=== PATIENT | female | born 1990 | race Caucasian/White ===

== ENCOUNTER 2020-02-02 12:49 | Outpatient (REF) | payer OTHER, SELFPAY | END 2020-02-02 12:50 | disposition home or self-care (01) | LOC: HO.LAB 12:49 | PROVIDERS: PCP Internal Medicine; Visit Provider Internal Medicine | DX: Z20.828 Contact with and (suspected) exposure to other viral communicable diseases (principal) | CPT/HCPCS: 36415; 87635 ==

== ENCOUNTER 2020-04-09 10:21 | Outpatient (REF) | payer OTHER, SELFPAY | END 2020-04-09 10:22 | disposition home or self-care (01) | LOC: HO.LAB 10:21 | PROVIDERS: Visit Provider Internal Medicine | DX: Z20.828 Contact with and (suspected) exposure to other viral communicable diseases (principal) | CPT/HCPCS: C9803; U0003 ==

== ENCOUNTER 2020-07-09 08:46 | Outpatient (REF) | payer OTHER, SELFPAY | END 2020-07-09 08:47 | disposition home or self-care (01) | LOC: HO.LAB 08:46 | PROVIDERS: Visit Provider Internal Medicine | DX: Z20.822 Contact with and (suspected) exposure to COVID-19 (principal) | CPT/HCPCS: 36415; C9803; U0003; U0005 ==

== ENCOUNTER 2020-08-15 13:14 | Outpatient (REF) | payer OTHER, SELFPAY | END 2020-08-15 13:15 | disposition home or self-care (01) | LOC: HO.LAB 13:14 | PROVIDERS: Visit Provider Internal Medicine | DX: Z20.822 Contact with and (suspected) exposure to COVID-19 (principal) | CPT/HCPCS: C9803; U0003; U0005 ==

== ENCOUNTER 2020-09-01 19:40 | Emergency (ER) | payer OTHER, SELFPAY ==
--- NOTE | ~2020-09-01 | US_ITS ---
EXAMINATION: US VENOUS ULTRASOUND WITH DOPPLER LOWER EXTREMITY, LEFT CLINICAL INFORMATION: Left leg edema and pain COMPARISON: None TECHNIQUE: Ultrasound of the deep veins is performed from the hip to the calf with compression sonography and color and pulse Doppler assessment. Spectral analysis with color-flow imaging is performed. FINDINGS: There is normal venous compression and respiratory variation and augmented flow. The visualized common femoral vein, superficial femoral vein, profunda femoral vein, popliteal vein, and the trifurcation region shows no evidence of deep venous thrombosis. There is no significant popliteal fossa cyst. If the patient's symptoms persist, followup ultrasound in 5 days 7 days might be of value to exclude proximal propagation from a non-visualized calf vein. US/US venous duplex LE LT IMPRESSION: No DVT demonstrated in the left lower extremity.
--- NOTE | ~2020-09-01 | XR_ITS ---
EXAMINATION: XR CHEST CLINICAL INFORMATION: Chest tightness COMPARISON: Chest x-rays of 06/17/2015 TECHNIQUE: Frontal view of the chest was obtained. FINDINGS: Cardiomediastinal silhouette is stable and normal. No abnormal tracheal deviation. No evidence of pneumothorax. The lungs are symmetrically well expanded and clear. No pleural effusions, pulmonary edema or focal consolidation. The regional skeleton is intact. XR/XR chest 1V IMPRESSION: No acute pulmonary process.
[2020-09-01 19:45] VITALS: BP 132/65; PULSE 84; RESP 18; TEMP 36.3; O2SAT 98; BMI 25.7
[2020-09-01 19:53] VITALS: BMI 24.8
--- NOTE | 2020-09-01 20:52 | ECG_ITS ---
Test Reason : DVT Blood Pressure : / mmHG Vent. Rate : 069 BPM Atrial Rate : 069 BPM P-R Int : 156 ms QRS Dur : 072 ms QT Int : 380 ms P-R-T Axes : 055 059 059 degrees QTc Int : 407 ms Normal sinus rhythm with sinus arrhythmia Normal ECG When compared with ECG of 06-FEB-2016 15:48, No significant change was found Referred By: Ale Woods Electronically Signed By:JEANNINE MARRUFO MD
--- NOTE | 2020-09-01 21:03 | ED_ITS ---
HPI - Extremity Problem General Chief complaint: Extremity Problem Stated complaint: foot swelling Time Seen by Provider: 09/01/20 20:37 Source: patient Mode of arrival: ambulatory Limitations: no limitations History of Present Illness MD Complaint: extremity pain and extremity swelling Onset (ago): day(s) (2) Pain Consistency: constant Location: left and lower extremity Quality: aching Radiation: none Relieving factors: nothing Exacerbating factors: walking and exertion Associated symptoms: chest pain Context: recent travel (returned from [place] 2 days ago did have mosquito bites but no redness or rash noted) Related Data Previous Rx's Medication Instructions Recorded cephalexin 500 mg PO BID 7 Days #14 cap 09/01/20 prednisone 40 mg PO DAILY 5 Days #10 tab 09/01/20 Allergies Allergy/AdvReac Type Severity Reaction Status Date / Time No Known Allergies Allergy Verified 09/01/20 19:51 Review of Systems Review of Systems: Constitutional : No Fever, No Chills ENT/Mouth : No Ear Pain, No Hoarseness, No sore throat Eyes: No Eye Pain, No Swelling, No Redness, No Foreign Body Cardiovascular :pos Chest Pain, No SOB, pos leg edema Respiratory : No Cough, No Dyspnea Gastrointestinal : No Nausea, No Vomiting, No Diarrhea, No abdominal Pain Genitourinary : No Dysuria, No Hematuria Musculoskeletal : positive leg pain, No Myalgias, No Joint Swelling Skin : No Skin lacerations, No rash Neuro : No Weakness, No Numbness, No Loss of Consciousness, No Dizziness, No Headache Psych : No Anxiety/Panic, No Depression Heme/Lymph: no easy bruising, no Lymphadenopathy Endocrine : No Polyuria, No Polydipsia All other systems reviewed and are negative PENDING SALE TO [facility] Past Medical History Attestation statement: The following information was validated with the patient. Medical History Anemia High cholesterol Low iron Vitamin D deficiency Social History Social History (Updated 09/01/20 @ 21:13 by Ale Woods DO) Smoking Status: Never smoker Use of substances other than those prescribed or required for medical reasons: No Advance Directives: No Advance Directives Information Provided: Yes Physical Exam Vital Signs: Vital Signs: Last Vital Signs Temp 96.9 F 09/01/20 23:34 Pulse 60 09/01/20 23:34 Resp 16 09/01/20 23:34 BP 115/79 09/01/20 23:34 Pulse Ox 97 09/01/20 23:34 Body Mass Index 24.8 Appearance: Alert. Oriented X3. No acute distress. Eyes: Pupils equal, round and reactive to light. ENT: Pharynx normal. Neck: Normal inspection. Neck supple. CVS: Normal heart rate and rhythm. Pulses normal. Respiratory: No respiratory distress. Breath sounds normal. Abdomen: Soft and nontender. Skin: Skin warm and dry. Normal skin color. Normal skin turgor. Extremities: LLE swelling 1+ pitting edema, no erythema/warmth no signs of abscess 2+ DP pulse. No calf ttp Neuro: Oriented X 3. No motor deficit. No sensory deficit. Course Course Course Narrative: negative workup stable for DC, will start on steroids and antibiotics for possible reaction to mosquito bites and start of cellulitis MDM - Extremity (Nontraumatic) MDM Narrative Medical decision making narrative: 30 yo female not on OCPs here with LLE pain and swelling x 2 days it does not appear cellulitic in nature c/o mild chest pain at this time will need labs, DVT study, seems atypical for ACS< ddimer and EKG ordered, dispo per results and findings. Lab Data Result diagrams: 09/01/20 21:35 09/01/20 21:35 Labs: Lab Results 09/01/20 09/01/20 09/01/20 Range/Units 21:35 21:35 21:35 WBC 11.2 H (4.8-10.8) X10*3/uL RBC 4.83 (4.20-5.50) X10*6/uL Hgb 14.5 (12.0-16.0) g/dl Hct 42.8 (37-47) % MCV 88.6 (80-98) fL MCH 30.0 (27.0-33.0) pg MCHC 33.9 (31.0-35.0) g/dl RDW 12.2 (11.0-16.0) % Plt Count 266 (160-400) X10*3/uL MPV 11.0 (9.4-12.3) fL Immature Gran % (Auto) 0.4 (0.0-0.4) % Neut % (Auto) 66.9 (45-73) % Lymph % (Auto) 18.9 L (20-40) % [place] % (Auto) 9.7 (2-11) % Eos % (Auto) 3.8 (0-4) % Baso % (Auto) 0.3 (0-2) % Lymph # (Auto) 2.1 (1.2-4.9) X10*3/uL [place] # (Auto) 1.1 (0.1-1.2) X10*3/uL Eos # (Auto) 0.4 (0.0-0.4) X10*3/uL Baso # (Auto) 0.0 (0.0-0.2) X10*3/uL Abs Immat Gran (auto) 0.04 H (0.00-0.03) X10*3/uL Absolute Neuts (auto) 7.5 (2.0-8.3) X10*3/uL Absolute Nucleated RBC 0.000 (0.0-0.012) X10*3/uL Nucleated RBC % (auto) 0.0 (0.0-0.2) /100WBC PT 13.0 (10.8-13.0) SEC INR 1.1 (0.9-1.1) APTT 35.5 (24.1-38.0) SEC D-Dimer < 200 NG/ML Sodium 140 (135-145) mmol/L Potassium 3.8 (3.3-5.1) mmol/L Chloride 107 (96-108) mmol/L Carbon Dioxide 22 (22-29) mmol/L Anion Gap 15 (12-20) BUN 10 (9-16) mg/dL Creatinine 0.72 (0.5-1.4) mg/dL Estim Creat Clear Calc 102.5 Estimated GFR > 60 Random Glucose 81 (60-115) mg/dL Calcium 9.3 (8.4-10.2) mg/dL Troponin I High Sens (<3.5-17.0) ng/L COVID-19 (MATILDA) (Negative) COVID-19 Clin Com 09/01/20 09/01/20 Range/Units 21:35 21:44 WBC (4.8-10.8) X10*3/uL RBC (4.20-5.50) X10*6/uL Hgb (12.0-16.0) g/dl Hct (37-47) % MCV (80-98) fL MCH (27.0-33.0) pg MCHC (31.0-35.0) g/dl RDW (11.0-16.0) % Plt Count (160-400) X10*3/uL MPV (9.4-12.3) fL Immature Gran % (Auto) (0.0-0.4) % Neut % (Auto) (45-73) % Lymph % (Auto) (20-40) % [place] % (Auto) (2-11) % Eos % (Auto) (0-4) % Baso % (Auto) (0-2) % Lymph # (Auto) (1.2-4.9) X10*3/uL [place] # (Auto) (0.1-1.2) X10*3/uL Eos # (Auto) (0.0-0.4) X10*3/uL Baso # (Auto) (0.0-0.2) X10*3/uL Abs Immat Gran (auto) (0.00-0.03) X10*3/uL Absolute Neuts (auto) (2.0-8.3) X10*3/uL Absolute Nucleated RBC (0.0-0.012) X10*3/uL Nucleated RBC % (auto) (0.0-0.2) /100WBC PT (10.8-13.0) SEC INR (0.9-1.1) APTT (24.1-38.0) SEC D-Dimer NG/ML Sodium (135-145) mmol/L Potassium (3.3-5.1) mmol/L Chloride (96-108) mmol/L Carbon Dioxide (22-29) mmol/L Anion Gap (12-20) BUN (9-16) mg/dL Creatinine (0.5-1.4) mg/dL Estim Creat Clear Calc Estimated GFR Random Glucose (60-115) mg/dL Calcium (8.4-10.2) mg/dL Troponin I High Sens < 3.5 (<3.5-17.0) ng/L COVID-19 (MATILDA) Negative (Negative) COVID-19 Clin Com See Note ECG Data Attestation EKG: I personally reviewed and interpreted this ECG as follows: ECG interpretation date: 09/01/20 ECG interpretation time: 21:16 Interpretation: Rate: 69 Rhythm: NSR [place]: normal Normal P waves. Normal URI. incomplete RBBB ST T wave : normal no JULIENNE qTC: normal prior studies: no acute ischemia The study has been interpreted contemporaneously by me. . Discharge Plan Discharge Clinical Impression: Lower extremity edema, Atypical chest pain Mosquito bite Qualifiers: Encounter type: initial encounter Qualified Code(s): W57.XXXA - Bitten or stung by nonvenomous insect and other nonvenomous arthropods, initial encounter Patient Disposition: Home, Self-Care Instructions: Chest Pain (ED), Leg Edema (ED) Additional Instructions: return to ED for any worsening symptoms or concerns Prescriptions: New prednisone 20 mg tablet 40 mg PO DAILY 5 Days Qty: 10 RF: 0 cephalexin 500 mg capsule 500 mg PO BID 7 Days Qty: 14 RF: 0 Referrals: Tammi Knapp MD [Primary Care Provider] - 2 days (if not better) Stand Alone Forms: Work/School Release
[2020-09-01 21:40] LABS: MANUAL DIFF FLAG NO
[2020-09-01 21:43] LABS: Basophils Percent Auto 0.3 % (0-2); Eosinophils Absolute Auto 0.4 X10*3/uL (0.0-0.4); Eosinophils Percent Auto 3.8 % (0-4); Hematocrit 42.8 % (37-47); Hemoglobin 14.5 g/dl (12.0-16.0); Imm Gran Abs Auto 0.04 X10*3/uL (0.00-0.03); Imm Gran Pct Auto 0.4 % (0.0-0.4); Lymphocytes Absolute Auto 2.1 X10*3/uL (1.2-4.9); Lymphocytes Percent Auto 18.9 % (20-40); Mean Corpuscular HGB Conc 33.9 g/dl (31.0-35.0); Mean Corpuscular Volume 88.6 fL (80-98); Monocytes Absolute Auto 1.1 X10*3/uL (0.1-1.2); Monocytes Percent Auto 9.7 % (2-11); Neutrophils Absolute Auto 7.5 X10*3/uL (2.0-8.3); Neutrophils Percent Auto 66.9 % (45-73); Platelet Count 266 X10*3/uL (160-400); Red Blood Count 4.83 X10*6/uL (4.20-5.50); Red Cell Distribution Width 12.2 % (11.0-16.0); White Blood Count 11.2 X10*3/uL (4.8-10.8)
[2020-09-01 21:49] LABS: INTERNATIONAL NORM RATIO 1.1 (0.9-1.1)
[2020-09-01 21:52] LABS: Partial Thromboplastin Time 35.5 SEC (24.1-38.0)
[2020-09-01 21:56] LABS: D Dimer < 200 NG/ML
[2020-09-01 22:04] LABS: Anion Gap 15 (12-20); Blood Urea Nitrogen 10 mg/dL (9-16); Calcium 9.3 mg/dL (8.4-10.2); Carbon Dioxide 22 mmol/L (22-29); Chloride 107 mmol/L (96-108); Creatinine Clr Calc Pharmacy 102.5; Estimated Glomerular Filt Rate > 60; Glucose Random 81 mg/dL (60-115); Potassium 3.8 mmol/L (3.3-5.1); Sodium 140 mmol/L (135-145)
[2020-09-01 22:12] LABS: Troponin-I High Sensitivity < 3.5 ng/L (<3.5-17.0)
[2020-09-01 22:15] LABS: COVID-19 Test Negative (Negative)
[2020-09-01 23:34] VITALS: BP 115/79; PULSE 60; RESP 16; TEMP 36.1; O2SAT 97
[2020-09-01] MEDS: cephALEXin 500 MG CAPSULE PO (23:53)
[2020-09-01] MEDS: predniSONE 20 MG TABLET PO (23:53)
== END 2020-09-01 23:50 | disposition home or self-care (01) ==
PROVIDERS: Emergency Provider Emergency Medicine; PCP Internal Medicine
DX: R60.0 Localized edema (principal); R07.89 Other chest pain; Z79.899 Other long term (current) drug therapy; Z20.822 Contact with and (suspected) exposure to COVID-19
CPT/HCPCS: 36415; 71045; 80048; 84484; 85025; 85379; 85610; 85730; 87635; 93005; 93971; 99284

== ENCOUNTER 2021-01-09 10:27 | Emergency (ER) | payer OTHER, SELFPAY ==
--- NOTE | ~2021-01-09 | CT_ITS ---
EXAMINATION: CT HEAD WITHOUT CONTRAST CLINICAL INFORMATION: Headache COMPARISON: None TECHNIQUE: Contiguous axial imaging was performed from the skull base to vertex without intravenous administration of contrast. This CT examination was performed using dose optimization techniques as appropriate, variously including the following: *Automated exposure control *Adjustment of mA and/or kV according to patient size (this includes techniques or standardized protocols for targeted exams where dose is matched to indication/reason for exam; i.e. extremities or head) *Use of iterative reconstruction technique DLP: 6-0 mGy-cm FINDINGS: There is no evidence of acute intracranial hemorrhage or territorial infarction. No abnormal mass effect or midline shift is seen. Max to white matter differentiation is well preserved. No extra-axial fluid collections are identified. The ventricles are normal in size. There is no abnormal attenuation within the brain parenchyma. The osseous structures and soft tissues are normal. The mastoid air cells and visualized portions of the paranasal sinuses are well aerated. CT/CT head/brain wo con IMPRESSION: No acute intracranial pathology.
[2021-01-09 10:30] VITALS: BP 121/70; PULSE 74; RESP 18; TEMP 36.9; O2SAT 100; BMI 25.4
--- NOTE | 2021-01-09 11:07 | ED.HA ---
HPI - Headache General Chief Complaint: Headache Stated Complaint: headache, lt arm tingling Time Seen by Provider: 01/09/21 10:54 Source: patient Mode of arrival: ambulatory Limitations: no limitations History of Present Illness HPI Narrative: 30-year-old female who presents emergency department for evaluation of headache x2 days. She states that the headache came on suddenly 2 days prior and was moderate but then became worse. She states that the headache has been constant for 2 days. She describes as a throbbing sensation and points to both sides for head when asked to localize the pain. She states the pain is slightly worse on the right side of her head than the left. The headache is associated with intermittent blurred vision and intermittent numbness of her left arm. She denied night sweats, weight loss or weight gain. denied fever, chills, stiff neck, loss of bowel or bladder control. The patient states that she has also been getting intermittent chest tightness over the past month. She states she is currently having pain in her chest which is 7/10. The patient states she took Tylenol with some relief of her pain. Patient states that these headaches have been on and off for the past 4 months and she states that they started after she received her COVID-19 Pfizer vaccination. Related Data Previous Rx's Medication Instructions Recorded cephalexin 500 mg capsule 500 mg PO BID 7 Days #14 cap 09/01/20 prednisone 20 mg tablet 40 mg PO DAILY 5 Days #10 tab 09/01/20 metoclopramide HCl 10 mg tablet 10 mg PO Q6H PRN #14 tab 01/09/21 (Reglan) Allergies Allergy/AdvReac Type Severity Reaction Status Date / Time No Known Allergies Allergy Verified 09/01/20 19:51 Review of Systems Review of Systems: Yes all other systems are reviewed and are negative FOR[facility]LY [facility] Past Medical History FOR[facility] Narrative: Social history: She denies tobacco use. She denies alcohol use. She denies drug use. Medical History Anemia High cholesterol Low iron Vitamin D deficiency Social History Social History Alcohol intake: never Patient Tobacco Use Status: Never used Tobacco Use of substances other than those prescribed or required for medical reasons: No Advance Directives: No Advance Directives Information Provided: No Physical Exam Vital Signs: Vital Signs: Last Vital Signs Temp 98.4 F 01/09/21 10:30 Pulse 74 01/09/21 10:30 Resp 18 01/09/21 10:30 BP 121/70 01/09/21 10:30 Pulse Ox 100 01/09/21 10:30 Body Mass Index 25.4 Const: General: cooperative and no acute distress Orientation/consciousness: oriented to person and oriented to place Limitations: no limitations HENMT: Head: Yes normal to inspection, Yes normocephalic and Yes atraumatic Ears: external ears normal General nose exam: Normal external nose present Face and sinus: Yes normal facial exam Mouth: Normal oral and palatal mucosa present Throat: Yes posterior oropharynx normal Eyes: General: appearance normal, both eyes and all related structures Pupils: Equal, round and reactive pupils present Neck: Neck: Yes normal visual inspection, Yes no lymphadenopathy, Yes trachea midline and Yes supple Chest: Chest palpation & inspection: normal inspection of the chest and tenderness (Tender anterior chest over costochondral joints) Resp: Effort & Inspection: normal respiratory effort and able to speak in complete sentences Auscultation: clear to auscultation bilaterally Cardio: Rate: regular rate Rhythm: regular rhythm Heart sounds: S1 normal heart sound present, S2 normal heart sound present and no murmurs GI: Inspection: Yes normal to inspection Palpation (GI): Soft to palpation, nontender and no guarding Auscultation: normal bowel sounds : General: Yes no CVA tenderness Back/Spine/Pelvis: Back: no CVA tenderness Skin: General skin exam: no rashes or lesions noted Neuro: General: oriented to person and oriented to place Cranial nerves: Yes CN's II-XII intact bilaterally and Yes Equal, round and reactive pupils present Cognition (Neuro): normal cognition Motor exam (neuro): 5/5 motor strength present throughout Extrem: General: Yes normal to inspection Psych: Appearance: grossly normal Speech and movement: Normal speech and movement present Affect: normal affect Attitude: cooperative Thought process: Normal thought process present Thought content: Normal thought content present Course Course Course Narrative: 30-year-old female who presents emergency department for evaluation of a headache x2 days. The headache is located on both sides of her head, the headache is a constant, throbbing sensation associated with blurred vision photophobia and occasional left arm tingling. She also has had intermittent chest wall tenderness. Physical examination was unremarkable except for tenderness with palpation of her chest. This is a new onset headache for the patient but she has had it intermittently for several months. Headache has lasted for 2 days therefore I did get a CT scan of the brain without any contrast CT scan was normal. Patient's presentation is consistent with migraine syndrome and costochondritis. I did discuss this with her. Patient was started on the following migraine regimen: Reglan 10 mg, Benadryl 50 mg, Excedrin migraine x1 every 6 hours as needed. She is also advised to take ibuprofen 600 mg 3 times a day as needed for her chest pain. The patient was discharged home. The patient was given verbal and printed instructions prior to discharge. The patient was advised to follow-up with her PCP in 2 days and to return to the emergency department if her symptoms get worse or if she develops any new symptoms that are concerning to her. Discharge Plan Discharge Clinical Impression: Acute costochondritis Migraine Qualifiers: Migraine type: without aura Status migrainosus presence: without status migrainosus Intractability: not intractable Qualified Code(s): G43.009 - Migraine without aura, not intractable, without status migrainosus Patient Disposition: Home, Self-Care Instructions: Migraine Headache (ED), Costochondritis (ED) Additional Instructions: Your symptoms are consistent with a migraine. I want you to take the following 3 medications together every 6 hours as needed for headache, nausea or vomiting. Reglan (metoclopramide) in 10 mg, 1 pill Benadryl 25 mg, 2 pills Excedrin migraine, 2 pills. After you take these medications, lie down in a dark quiet room and try to fall asleep. These medications will make you sleepy, do not drive or work after taking these medications. Your chest pain is most likely caused by inflammation of your chest. For this pain take ibuprofen 200 mg pills, 3 pills every 6 hours as needed for pain. Follow-up with your doctor in 2 days. Please return to the emergency department if your symptoms get worse or if you develop any symptoms that are concerning to you. Prescriptions: New metoclopramide HCl [Reglan] 10 mg tablet 10 mg PO Q6H PRN (Reason: nausea and vomiting) Qty: 14 RF: 0 No Action prednisone 20 mg tablet 40 mg PO DAILY 5 Days Qty: 10 RF: 0 cephalexin 500 mg capsule 500 mg PO BID 7 Days Qty: 14 RF: 0
[2021-01-09 12:23] VITALS: BP 113/70; PULSE 60; RESP 18; TEMP 37.1; O2SAT 100
== END 2021-01-09 12:54 | disposition home or self-care (01) ==
PROVIDERS: Emergency Provider Emergency Medicine Emergency Medical Services; PCP Internal Medicine
DX: M94.0 Chondrocostal junction syndrome [Tietze] (principal); G43.009 Migraine without aura, not intractable, without status migrainosus; Z79.899 Other long term (current) drug therapy
CPT/HCPCS: 70450; 99284

== ENCOUNTER 2021-11-30 10:41 | Emergency (ER) | payer OTHER, SELFPAY ==
[2021-11-30 11:36] VITALS: BP 120/72; PULSE 77; RESP 16; TEMP 36.6; O2SAT 97; BMI 20.3
[2021-11-30 12:10] LABS: Appearance Urine HAZY; Color Urine YELLOW; Glucose Urine UA NEG (NEG); Leukocyte Esterase Urine NEG (NEG); Nitrite Urine NEG (NEG); Specific Gravity - Urine 1.025 (1.005-1.025); Urine Blood NEG (NEG); Urine Ketones NEG (NEG); Urine Protein NEG (NEG-TRACE)
--- NOTE | 2021-11-30 12:16 | ED_ITS ---
HPI - General Adult General Chief complaint: General Medical Stated complaint: STD testing Time Seen by Provider: 11/30/21 11:54 Source: patient Mode of arrival: ambulatory Limitations: no limitations History of Present Illness HPI narrative: Patient is a 31 year old female presenting to the emergency department today requesting to be tested for all STDs including HIV, Hepatitis, and Syphillis. Patient states that she was made aware of some information and though she isn't having any symptoms, she would like to be tested. Patient states that she does not want prophylactic treatment for any STIs. Patient denies any dizziness, lightheadedness, abdominal pain, nausea, vomiting, fever, chills, blurry vision, double vision, loss of vision, chest pain, difficulty breathing, shortness of breath, back pain, night sweats, pain with urination, increased urinary frequency, increased urinary urgency, blood in her urine or stool, syncope or a near syncopal episode, recent trauma or falls, bowel incontinence, bladder incontinence, bowel retention, bladder retention, or any other complaints at this time. Relieving factors: none Exacerbating factors: none Associated symptoms: denies other symptoms Treatments prior to arrival: none Related Data Previous Rx's Medication Instructions Recorded cephalexin 500 mg capsule 500 mg PO BID 7 days #14 caps 09/01/20 prednisone 20 mg tablet 40 mg PO DAILY 5 days #10 tabs 09/01/20 metoclopramide HCl 10 mg tablet 10 mg PO Q6H PRN nausea and 01/09/21 (Reglan) vomiting #14 tabs Allergies Allergy/AdvReac Type Severity Reaction Status Date / Time No Known Allergies Allergy Verified 11/30/21 11:36 Review of Systems Constitutional: Constitutional: Reports no additional constitutional complaints, Denies chills, Denies fever(s) and Denies night sweats Eyes: Eyes: Reports no additional eye complaints, Denies blurry vision, Denies change in vision, Denies diplopia, Denies eye discharge, Denies loss of vision and Denies eye pain ENT: Denies dizziness Cardiovascular: Cardiovascular: Reports no additional cardiovascular complaints, Denies chest pain, Denies lightheadedness, Denies Loss of Consciousness and Denies dyspnea Respiratory: Respiratory: Reports no additional respiratory complaints and Denies dyspnea Gastrointestinal: Gastrointestinal: Reports no additional gastrointestinal complaints, Denies abdominal pain, Denies melena, Denies hematochezia, Denies change in bowel habits and Denies change in stool character Genitourinary: Genitourinary: Denies hematuria, Denies urinary frequency, Denies dysuria, Denies urinary incontinence, Denies urinary hesitancy and Denies urinary urgency Musculoskeletal: Musculoskeletal: Reports no additional musculoskeletal complaints, Denies numbness and Denies tingling Neurologic: Denies dizziness, Denies loss of vision, Denies numbness and Denies tingling Psychiatric: Psychiatric: Reports no additional psychiatric complaints Endocrine: Endocrine: Reports no additional endocrine complaints Hematologic/Lymphatic: Hematologic/Lymphatic: Reports no additional hematologic/lymphatic complaints Allergic/Immunologic: Allergic/Immunologic: Reports no additional allergic/immunologic complaints [facility] Past Medical History Attestation statement: The following information was validated with the patient. Source: old records reviewed Medical History Anemia High cholesterol Low iron Vitamin D deficiency Social History Social History Alcohol intake: never Patient Tobacco Use Status: Never used Tobacco Advance Directives: No Advance Directives Information Provided: No Physical Exam ED Vital Signs: Vital Signs - 24 hr 11/30/21 11:36 Temperature 97.8 F Pulse Rate 77 Respiratory Rate 16 Blood Pressure 120/72 Pulse Oximetry 97 Oxygen Delivery Method Room Air BMI result Body Mass Index 20.3 Const General: cooperative, no acute distress, alert and awake Nutritional Appearance: well nourished Orientation/consciousness: patient oriented x3 Limitations: no limitations [facility] Head: Yes normal to inspection and Yes atraumatic Ears: hearing grossly normal bilaterally and external ears normal General nose exam: Normal external nose present, no nasal discharge noted and no epistaxis Face and sinus: Yes normal facial exam, No abrasion and No laceration Mouth: Normal oral and palatal mucosa present, no drooling and no muffled voice Eyes General: appearance normal, both eyes and all related structures Periorbital: periorbital findings normal Eyelids: Yes eyelids normal Conjunctivae: conjunctivae normal Pupils: Equal, round and reactive pupils present EOM: EOMs intact bilaterally Neck Neck: Yes normal visual inspection, Yes full ROM and Yes no lymphadenopathy Chest Chest palpation & inspection: normal inspection of the chest Resp Effort & Inspection: normal respiratory effort and able to speak in complete sentences Auscultation: clear to auscultation bilaterally Cardio Rate: regular rate Rhythm: regular rhythm GI Inspection: Yes normal to inspection Neuro General: patient oriented x3 and moves all extremities Cranial nerves: Yes Equal, round and reactive pupils present Cognition (Neuro): normal cognition Motor exam (neuro): 5/5 motor strength present throughout Sensory Exam: Normal double simultaneous stimulation for sensation Coordination: [id number] test normal Extrem General: Yes normal to inspection, Yes full ROM and Yes capillary refill normal Psych Appearance: grossly normal Mental Status: mental status grossly normal Affect: normal affect Attitude: cooperative Thought process: Normal thought process present Thought content: Normal thought content present Insight: Good insight present (Psych) Medical Decision Making MDM Narrative Medical decision making narrative: Patient is a 31 year old female presenting to the emergency department today requesting extensive STI screening. Patient's physical exam was unremarkable. Patient's blood work is pending. Patient's urine showed no acute process with CT/NG pending. I explained my physical exam findings as well as all test results to the patient. I answered all questions asked by the patient. I stressed the importance of the patient practicing safe sex. I stressed the importance of the patient taking her medication as prescribed. I stressed the importance of the patient following up with her primary care provider. I stressed the importance of the patient returning to the emergency department immediately if she were to develop any dizziness, shortness of breath, difficulty breathing, chest pain, blurry vision, loss of vision, nausea, vomiting, abdominal pain, fever, chills, back pain, or any other complaints. Patient verbalized agreement and understanding with this treatment plan and discharge. Differential Diagnosis Differential Diagnosis: STI exposure Medical Records Medical records reviewed: Yes I reviewed the patient's medical records. Lab Data Lab results reviewed: Yes I reviewed the patient's lab results. Labs: Lab Results 11/30/21 11/30/21 Range/Units 11:59 11:59 Urine Color YELLOW Urine Appearance HAZY Urine pH 6.0 (5.0-8.0) Ur Specific [place] 1.025 (1.005-1.025) Urine Protein NEG (NEG-TRACE) MG/DL Urine Glucose (UA) NEG (NEG) MG/DL Urine Ketones NEG (NEG) MG/DL Urine Blood NEG (NEG) Urine Nitrite NEG (NEG) Ur Leukocyte Esterase NEG (NEG) Urine Test NEGATIVE (NEGATIVE) Discharge Plan Discharge Clinical Impression: Exposure to STD Patient Disposition: Home, Self-Care Instructions: Sexually Transmitted Diseases (ED), Safe Sex Practices (ED) Additional Instructions: Follow up with your primary care provider. Return to the emergency department immediately if your symptoms worsen or if you develop any dizziness, shortness of breath, difficulty breathing, chest pain, blurry vision, loss of vision, nausea, vomiting, abdominal pain, fever, chills, back pain, or any other complaints. Prescriptions: No Action prednisone 20 mg tablet 40 mg PO DAILY 5 Days Qty: 10 0RF cephalexin 500 mg capsule 500 mg PO BID 7 Days Qty: 14 0RF metoclopramide HCl [Reglan] 10 mg tablet 10 mg PO Q6H PRN (Reason: nausea and vomiting) Qty: 14 0RF Referrals: Tammi Knapp MD [Primary Care Provider] - Print Language: Bulgarian
[2021-11-30 12:18] LABS: UPreg QC Valid YES; Urine Pregnancy NEGATIVE (NEGATIVE)
[2021-11-30 17:51] LABS: CT PCR NOT DETECTED (Not Detect.); NG PCR NOT DETECTED (Not Detect.)
[2021-12-02 04:39] LABS: HBc Num1 0.07 S/CO (0.00-0.79); HBsAGNum1 0.19 S/CO (0.00-0.99); HIV AB/AG Nonreactive (Nonreactive); HIV Num 1 0.09 S/CO (0.00-0.99); Hepatitis B Core Antibody Nonreactive (Nonreactive); Hepatitis B Surface Antigen Negative (Negative); ~HepC Num1 0.09 S/CO (0.00-0.79); ~Hepatitis B Surface Antibody REACTIVE (Nonreactive); ~Hepatitis C Antibody Nonreactive (Nonreactive)
[2021-12-02 06:06] LABS: Syphilis Screen Nonreactive (Nonreactive)
[2021-12-04 05:31] LABS: Hepatitis A Antibody IgM 0.24 Index (0-0.79); ~Hepatitis A Antibody IgM Nonreactive (Nonreactive)
== END 2021-11-30 13:02 | disposition home or self-care (01) ==
PROVIDERS: Physician Assistant Medical; Emergency Provider Student in an Organized Health Care Education/Training Program; PCP Internal Medicine
DX: Z20.2 Contact with and (suspected) exposure to infections with a predominantly sexual mode of transmission (principal)
CPT/HCPCS: 36415; 81003; 81025; 86704; 86706; 86709; 86780; 86803; 87340; 87389; 87491; 87591; 99282; 99283

== ENCOUNTER 2022-05-09 15:25 | Emergency (ER) | payer OTHER, SELFPAY ==
--- NOTE | ~2022-05-09 | XR_ITS ---
EXAMINATION: XR CHEST CLINICAL INFORMATION: Upper respiratory infection COMPARISON: 06/17/2015 and 09/01/2020 TECHNIQUE: 2 views of the chest were obtained. FINDINGS: No convincing evidence for an acute process. Some densities overlying the lower lung zones may well represent the patient's nipple shadows. The cardiac silhouette is within normal limits. The hilar structures do not appear pathologically enlarged. XR/XR chest 2V IMPRESSION: No convincing evidence for an acute process.
[2022-05-09 16:05] VITALS: BP 104/64; PULSE 79; RESP 20; TEMP 36.8; O2SAT 98; BMI 20.3
--- NOTE | 2022-05-09 16:05 | ED_ITS ---
HPI - URI/Sore Throat General Chief Complaint: Upper Respiratory Symptoms <Jayne Ibarra CNP - Last Filed: 05/09/22 16:09> Stated Complaint: chest pain, fever, runny nose <Jayne Ibarra CNP - Last Filed: 05/09/22 16:09> Time Seen by Provider: 05/09/22 16:31 <Jayne Ibarra CNP - Last Filed: 05/09/22 16:09> Source: patient <Kia Barton NP - Last Filed: 05/10/22 00:26> Mode of arrival: ambulatory <LORETTA Lemus Last Filed: 05/10/22 00:26> Limitations: no limitations <Kia Barton NP - Last Filed: 05/10/22 00:26> History of Present Illness HPI Narrative: 32-year-old female presents with 5 days of upper respiratory symptoms, fever, cough, congestion, chest pressure and malaise. <Kia Barton NP - Last Filed: 05/10/22 00:26> MD elicited complaint: fever, cough, rhinorrhea and nasal congestion <Kia Barton NP - Last Filed: 05/10/22 00:26> Onset (ago): day(s) (5) <Kia Barton NP - Last Filed: 05/10/22 00:26> Consistency: constant and progressively worsening <Kia Barton NP - Last Filed: 05/10/22 00:26> Severity: moderate <Kia Barton NP - Last Filed: 05/10/22 00:26> Description of mucous: clear <Kia Barton NP - Last Filed: 05/10/22 00:26> Able to tolerate fluids by mouth: Yes <LORETTA Lemus Last Filed: 05/10/22 00:26> Exacerbating factors: exertion <LORETTA Lemus Last Filed: 05/10/22 00:26> Relieving factors: nothing <LORETTA Lemus Last Filed: 05/10/22 00:26> Context: sick contacts <LORETTA Lemus Last Filed: 01/07/23 00:26> Associated symptoms: fever, chills, voice changes, myalgias, headache, rhinorrhea, nasal congestion, sore throat, cough and nausea <Kia Barton NP - Last Filed: 05/10/22 00:26> Treatments prior to arrival: none <Kia Barton NP - Last Filed: 05/10/22 00:26> Related Data Home Medications: Previous Rx's Medication Instructions Recorded cephalexin 500 mg capsule 500 mg PO BID 7 days #14 caps 09/01/20 prednisone 20 mg tablet 40 mg PO DAILY 5 days #10 tabs 09/01/20 metoclopramide HCl 10 mg tablet 10 mg PO Q6H PRN nausea and 01/09/21 (Reglan) vomiting #14 tabs <Jayne Ibarra CNP - Last Filed: 05/09/22 16:09> Allergies/Adverse Reactions: Allergies Allergy/AdvReac Type Severity Reaction Status Date / Time No Known Allergies Allergy Verified 11/30/21 11:36 <Jayne Ibarra CNP - Last Filed: 05/09/22 16:09> Review of Systems Review of Systems: Constitutional: positive Fever, positive Chills, positive fatigue, positive Malaise ENT/Mouth: positive sore throat, positive runny nose Eyes: No Discharge Cardiovascular: No Chest Pain, No SOB Respiratory: Positive Cough, No Sputum, No Wheezing, No Dyspnea Gastrointestinal: Positive Nausea, No Vomiting, No Diarrhea Musculoskeletal: positive Myalgia Skin: No rash Neuro: Positive Headache <Kia Barton NP - Last Filed: 05/10/22 00:26> Yes all other systems are reviewed and are negative <Kia Barton NP - Last Filed: 05/10/22 00:26> [facility] Past Medical History Attestation statement: The following information was validated with the patient. <Kia Barton NP - Last Filed: 05/10/22 00:26> Source: old records reviewed <Kia Barton NP - Last Filed: 05/10/22 00:26> Medical History: Medical History Anemia High cholesterol Low iron Vitamin D deficiency <Jayne Ibarra CNP - Last Filed: 05/09/22 16:09> Social History Social History: Social History Alcohol intake: never Patient Tobacco Use Status: Never used Tobacco Advance Directives: No Advance Directives Information Provided: Yes <Jayne Ibarra CNP - Last Filed: 05/09/22 16:09> Physical Exam Vital Signs: Vital Signs: Last Vital Signs Temp 98.3 F 05/09/22 16:05 Pulse 79 05/09/22 16:05 Resp 20 05/09/22 16:05 BP 104/64 05/09/22 16:05 Pulse Ox 98 05/09/22 16:05 O2 Del Method 05/09/22 16:05 BMI result Body Mass Index 20.3 <Jayne Ibarra CNP - Last Filed: 05/09/22 16:09> Vital Signs: Last Vital Signs Temp 98.3 F 05/09/22 16:05 Pulse 79 05/09/22 16:05 Resp 20 05/09/22 16:05 BP 104/64 05/09/22 16:05 Pulse Ox 98 05/09/22 16:05 O2 Del Method 05/09/22 16:05 BMI result Body Mass Index 20.3 <Kia Barton NP - Last Filed: 05/10/22 00:26> Appearance: Alert. Oriented X3. Mild distress. Eyes: Pupils equal, round and reactive to light. ENT: Pharynx normal. Neck: Normal inspection. Neck supple. CVS: Normal heart rate and rhythm. Pulses normal. Respiratory: No respiratory distress. Breath sounds normal. Abdomen: Soft and nontender. Skin: Skin warm and dry. Normal skin color. Normal skin turgor. Extremities: Gait well balanced well coordinated Neuro: No motor deficit. No sensory deficit. Cranial nerves 2-12 intact <Kia Barton NP - Last Filed: 05/10/22 00:26> Course Course Course Narrative: This is an RME: Additional HPI, ROS, PE not included below will be deferred to primary provider. Patient is a 32-year-old female who presents emergency department for evaluation of upper respiratory symptoms. She is currently complaining of fever, cough, chest discomfort, rhinorrhea, fatigue. Symptom onset was 5 days ago, 4 days ago she took a home COVID-19 test which was negative. has tried DayQuil, NyQuil, acetaminophen, Motrin without any improvement. Plan: viral testing <Jayne Ibarra CNP - Last Filed: 05/09/22 16:09> This is an RME: Additional HPI, ROS, PE not included below will be deferred to primary provider. Patient is a 32-year-old female who presents emergency department for evaluation of upper respiratory symptoms. She is currently complaining of fever, cough, chest discomfort, rhinorrhea, fatigue. Symptom onset was 5 days ago, 4 days ago she took a home COVID-19 test which was negative. has tried DayQuil, NyQuil, acetaminophen, Motrin without any improvement. Plan: viral testing 32-year-old female presents with flu-like symptoms, tested positive for influenza A while in the emergency department waiting room. I did discuss supportive measures with this patient, plan of care is to discharge home. Patient is afebrile, appears nontoxic, O2 sat 98% on room air. Patient verbalized understanding of and agrees to plan of care discharge home. Verbalized understanding of signs and symptoms indicating need for emergent intervention. <Kia Barton NP - Last Filed: 05/10/22 00:26> Medications Administered Discontinued Medications Generic Name Dose Route Start Last Admin Trade Name Freq PRN Reason Stop Dose Admin Albuterol Sulfate 2 puff 05/09/22 17:19 05/09/22 17:47 Albuterol Sulfate 90 Mcg 8 Gm Inhaler INHALE 05/09/22 17:20 2 puff ONCE ONE Administration <Jayne Ibarra CNP - Last Filed: 05/09/22 16:09> Medications Administered Discontinued Medications Generic Name Dose Route Start Last Admin Trade Name Freq PRN Reason Stop Dose Admin Albuterol Sulfate 2 puff 05/09/22 17:19 05/09/22 17:47 Albuterol Sulfate 90 Mcg 8 Gm Inhaler INHALE 05/09/22 17:20 2 puff ONCE ONE Administration <Kia Barton NP - Last Filed: 05/10/22 00:26> Medical Decision Making Differential Diagnosis Differential Diagnoses: The differential diagnosis associated with the presentation includes <Kia Barton NP - Last Filed: 05/10/22 00:26> COVID, influenza, RSV <Kia Barton NP - Last Filed: 05/10/22 00:26> Lab Data MDM Lab Attestation statement: I reviewed the patient's lab results. <Kia Barton NP - Last Filed: 05/10/22 00:26> Labs: Lab Results 05/09/22 Range/Units 16:12 Influenza Type A (PCR) POSITIVE A (Negative) Influenza Type B (PCR) NEGATIVE (Negative) RSV RNA Qual (PCR) NEGATIVE (Negative) SARS-CoV-2 RNA (RT-PCR) NEGATIVE (Negative) <Jayne Ibarra CNP - Last Filed: 05/09/22 16:09> Lab Results 05/09/22 Range/Units 16:12 Influenza Type A (PCR) POSITIVE A (Negative) Influenza Type B (PCR) NEGATIVE (Negative) RSV RNA Qual (PCR) NEGATIVE (Negative) SARS-CoV-2 RNA (RT-PCR) NEGATIVE (Negative) <Kia Barton NP - Last Filed: 05/10/22 00:26> Independent Interpretation I performed an independent interpretation of an: Plain X-Ray <Kia Barton NP - Last Filed: 05/10/22 00:26> Radiology Impression Discussion of test interpretation with radiology: I have reviewed the radiologist's reading. <Kia Barton NP - Last Filed: 05/10/22 00:26> Radiologist Impression: EXAMINATION: XR CHEST CLINICAL INFORMATION: Upper respiratory infection COMPARISON: 06/17/2015 and 09/01/2020 TECHNIQUE: 2 views of the chest were obtained. FINDINGS: No convincing evidence for an acute process. Some densities overlying the lower lung zones may well represent the patient's nipple shadows. The cardiac silhouette is within normal limits. The hilar structures do not appear pathologically enlarged. XR/XR chest 2V IMPRESSION: No convincing evidence for an acute process. <Kia Barton NP - Last Filed: 05/10/22 00:26> External Record Review External record reviewed: Outpatient record <Kia Barton NP - Last Filed: 05/10/22 00:26> Discharge Plan Discharge Clinical Impression: Influenza <Jayne Ibarra CNP - Last Filed: 05/09/22 16:09> Patient Disposition: Home, Self-Care <Jayne Ibarra CNP - Last Filed: 05/09/22 16:09> Instructions: Influenza (ED) <Jayne Ibarra CNP - Last Filed: 05/09/22 16:09> Additional Instructions: You were evaluated for upper respiratory symptoms. You tested positive for influenza A. Chest x-rays negative for pneumonia and other acute findings. Drink plenty of fluids. Alternate Tylenol 650 mg every 6 hours and Motrin 600 mg every 6 hours as needed for pain and fever management. Consider taking these medications 3 hours apart so you have pain and fever management every 3 hours. Write down what time you take these medications to prevent accidental overdose. Thank you for choosing this emergency department for evaluation. Please follow-up with primary care physician as needed. Return to the emergency department for any new, concerning, or worsening symptoms. <Jayne Ibarra CNP - Last Filed: 05/09/22 16:09> Prescriptions: No Action prednisone 20 mg tablet 40 mg PO DAILY 5 Days Qty: 10 0RF cephalexin 500 mg capsule 500 mg PO BID 7 Days Qty: 14 0RF metoclopramide HCl [Reglan] 10 mg tablet 10 mg PO Q6H PRN (Reason: nausea and vomiting) Qty: 14 0RF <Jayne Ibarra CNP - Last Filed: 05/09/22 16:09> Stand Alone Forms: Work/School Release <Jayne Ibarra CNP - Last Filed: 05/09/22 16:09> Interventions: ED Discharge Assessment Last Done: 05/09/22 17:54 <Jayne Ibarra CNP - Last Filed: 05/09/22 16:09> Discharge Date/Time: 05/09/22 17:55 <Jayne Ibarra CNP - Last Filed: 05/09/22 16:09>
[2022-05-09 16:57] LABS: Influenza A PCR POSITIVE (Negative); Influenza B PCR NEGATIVE (Negative); Resp Syncy Virus RNA Qual PCR NEGATIVE (Negative); SARS COV2 PCR INHOUSE NEGATIVE (Negative)
[2022-05-09] MEDS: Albuterol Sulfate 90 MCG 8 GM INHALER 2 PUFF INHALE (17:47)
== END 2022-05-09 17:55 | disposition home or self-care (01) ==
PROVIDERS: Nurse Practitioner Family; Emergency Provider Emergency Medicine
DX: J10.1 Influenza due to other identified influenza virus with other respiratory manifestations (principal); Z20.822 Contact with and (suspected) exposure to COVID-19; Z20.828 Contact with and (suspected) exposure to other viral communicable diseases
CPT/HCPCS: 0241U; 71046; 94640; 99283; 99284

== ENCOUNTER 2023-03-06 17:25 | Emergency (ER) | payer OTHER, SELFPAY ==
[2023-03-06 18:16] VITALS: BP 118/76; PULSE 102; RESP 18; TEMP 36.1; O2SAT 98; BMI 22.7
--- NOTE | 2023-03-06 18:17 | ED.GENADULT ---
HPI - General Adult General Chief complaint: General Medical Stated complaint: body aches, sick for the past week, not better Time Seen by Provider: 03/06/23 20:34 Source: patient Mode of arrival: ambulatory Limitations: no limitations History of Present Illness HPI narrative: Patient is a 33 year old assigned female at with no reported medical history presenting to the emergency department today with body aches and sinus pain. Patient states that over the last week she has had body aches and constant sinus pressure. Patient denies any dizziness, lightheadedness, abdominal pain, nausea, vomiting, fever, chills, blurry vision, double vision, loss of vision, chest pain, difficulty breathing, shortness of breath, back pain, night sweats, pain with urination, increased urinary frequency, increased urinary urgency, blood in her urine or stool, syncope or a near syncopal episode, recent trauma or falls, bowel incontinence, bladder incontinence, bowel retention, bladder retention, or any other complaints at this time. Onset (ago): week(s) (1) Severity: mild Severity scale (1-10): 3 Relieving factors: none Exacerbating factors: none Associated symptoms: denies other symptoms Treatments prior to arrival: none Related Data Previous Rx's Medication Instructions Recorded cephalexin 500 mg capsule 500 mg PO BID 7 days #14 caps 09/01/20 prednisone 20 mg tablet 40 mg (2 x 20 mg) PO DAILY 5 days 09/01/20 #10 tabs metoclopramide HCl 10 mg tablet 10 mg PO Q6H PRN nausea and 01/09/21 (Reglan) vomiting #14 tabs doxycycline hyclate 100 mg tablet 100 mg PO BID 7 days #14 tabs 03/06/23 Allergies Allergy/AdvReac Type Severity Reaction Status Date / Time No Known Allergies Allergy Verified 03/06/23 18:19 Review of Systems Constitutional: Constitutional: Reports no additional constitutional complaints, Reports body ache(s), Denies chills, Denies fever(s) and Denies night sweats Eyes: Eyes: Reports no additional eye complaints, Denies blurry vision, Denies change in vision, Denies diplopia, Denies eye discharge, Denies loss of vision and Denies eye pain ENT: Denies dizziness and Reports sinus pain Cardiovascular: Cardiovascular: Reports no additional cardiovascular complaints, Denies chest pain, Denies lightheadedness, Denies Loss of Consciousness and Denies dyspnea Respiratory: Respiratory: Reports no additional respiratory complaints and Denies dyspnea Gastrointestinal: Gastrointestinal: Reports no additional gastrointestinal complaints, Denies abdominal pain, Denies melena, Denies hematochezia, Denies change in bowel habits and Denies change in stool character Genitourinary: Genitourinary: Denies hematuria, Denies urinary frequency, Denies dysuria, Denies urinary incontinence, Denies urinary hesitancy and Denies urinary urgency Musculoskeletal: Musculoskeletal: Reports no additional musculoskeletal complaints, Denies numbness and Denies tingling Neurologic: Denies dizziness, Denies loss of vision, Denies numbness and Denies tingling Psychiatric: Psychiatric: Reports no additional psychiatric complaints Endocrine: Endocrine: Reports no additional endocrine complaints Hematologic/Lymphatic: Hematologic/Lymphatic: Reports no additional hematologic/lymphatic complaints Allergic/Immunologic: Allergic/Immunologic: Reports no additional allergic/immunologic complaints PMFSH Past Medical History Attestation statement: The following information was validated with the patient. Source: old records reviewed and nursing notes reviewed Medical History Anemia High cholesterol Low iron Vitamin D deficiency Social History Social History Alcohol intake: never Patient Tobacco Use Status: Never used Tobacco Advance Directives: No Advance Directives Information Provided: No Physical Exam ED Vital Signs: Vital Signs - 24 hr 03/06/23 18:16 Temperature 96.9 F Pulse Rate 102 H Respiratory Rate 18 Blood Pressure 118/76 Pulse Oximetry 98 Oxygen Delivery Method Room Air BMI result Body Mass Index 22.7 Const General: cooperative, no acute distress, alert and awake Nutritional Appearance: well nourished Orientation/consciousness: patient oriented x3 Limitations: no limitations HENTN Head: Yes normal to inspection and Yes atraumatic Ears: hearing grossly normal bilaterally and external ears normal General nose exam: Normal external nose present, no nasal discharge noted and no epistaxis Face and sinus: Yes normal facial exam, No abrasion and No laceration Mouth: Normal oral and palatal mucosa present, no drooling and no muffled voice Eyes General: appearance normal, both eyes and all related structures Periorbital: periorbital findings normal Eyelids: Yes eyelids normal Conjunctivae: conjunctivae normal Pupils: Equal, round and reactive pupils present EOM: EOMs intact bilaterally Neck Neck: Yes normal visual inspection, Yes full ROM and Yes no lymphadenopathy Chest Chest palpation & inspection: normal inspection of the chest Resp Effort & Inspection: normal respiratory effort and able to speak in complete sentences GI Inspection: Yes normal to inspection Neuro General: patient oriented x3 and moves all extremities Cranial nerves: Yes Equal, round and reactive pupils present Cognition (Neuro): normal cognition Motor exam (neuro): 5/5 motor strength present throughout Sensory Exam: Normal double simultaneous stimulation for sensation Coordination: [id number] test normal Extrem General: Yes normal to inspection, Yes full ROM and Yes capillary refill normal Psych Appearance: grossly normal Mental Status: mental status grossly normal Affect: normal affect Attitude: cooperative Thought process: Normal thought process present Thought content: Normal thought content present Insight: Good insight present (Psych) Course Course Course Narrative: This is a rapid medical exam: Additional HPI, ROS, PE not included below will be deferred to primary provider. Patient is a 33-year-old female presenting to the emergency department with complaint of body aches, sore throat, ear pain, fatigue for the past week. Reports chills, denies fevers. States kids are sick with similar symptoms but her symptoms feel worse than a cold. Plan: swab for flu/covid/strep Medications Administered Discontinued Medications Generic Name Dose Route Start Last Admin Trade Name Emiliano PRN Reason Stop Dose Admin Doxycycline Monohydrate 100 mg 03/06/23 21:25 03/06/23 21:38 Doxycycline Monohydrate 100 Mg Capsule PO 03/06/23 21:26 100 mg ONCE ONE Administration Medical Decision Making Medical Decision Making [facility] Narrative: Patient is a 33 year old assigned female at with no reported medical history presenting to the emergency department today with body aches and sinus pain. Patient's physical exam was unremarkable. Patient's COVID-19, influenza, and strep test was negative. I explained my physical exam findings as well as all test results to the patient. I answered all questions asked by the patient. I stressed the importance of the patient taking her medication as prescribed. I stressed the importance of the patient following up with her primary care provider. I stressed the importance of the patient returning to the emergency department immediately if her symptoms were to worsen or if she were to develop any dizziness, shortness of breath, difficulty breathing, chest pain, blurry vision, loss of vision, nausea, vomiting, abdominal pain, fever, chills, back pain, or any other complaints. Patient verbalized agreement and understanding with this treatment plan and discharge. Differential Diagnosis Differential Diagnoses: The differential diagnosis associated with the presentation includes Sinusitis URI COVID-19 Influenza Strep pharyngitis Lab Data MDM Lab Attestation statement: I reviewed the patient's lab results. My interpretation of these studies and their corresponding values is that they are grossly normal. Labs: Lab Results 03/06/23 Range/Units 19:29 COVID-19 (MATILDA) Negative (Negative) COVID-19 Clin Com See Note Influenza Type A (ANDREA) Negative (Negative) Influenza Type B (ANDREA) Negative (Negative) Influenza A & B Note See Note S. pyogenes GrpA ANDREA Negative (Negative) Prescription Management I considered prescription management with: Antibiotic (patient prescribed an antibiotic for sinusitis.) Discharge Plan Discharge Clinical Impression: Sinusitis Patient Disposition: Home, Self-Care Instructions: Sinusitis (ED) Additional Instructions: Follow up with your primary care provider. Return to the emergency department immediately if your symptoms worsen or if you develop any dizziness, shortness of breath, difficulty breathing, chest pain, blurry vision, loss of vision, nausea, vomiting, abdominal pain, fever, chills, back pain, or any other complaints. Prescriptions: New doxycycline hyclate 100 mg tablet 100 mg PO BID 7 Days Qty: 14 0RF No Action prednisone 20 mg tablet 40 mg PO DAILY 5 Days Qty: 10 0RF cephalexin 500 mg capsule 500 mg PO BID 7 Days Qty: 14 0RF metoclopramide HCl [Reglan] 10 mg tablet 10 mg PO Q6H PRN (Reason: nausea and vomiting) Qty: 14 0RF Referrals: [facility] [place] Family Medicine [Provider Group] (Call to establish and follow up with a primary care provider. If you already have a primary care provider, please follow up with them.) [facility] [place] [facility] [Provider Group] (Call to establish and follow up with a primary care provider. If you already have a primary care provider, please follow up with them.) [facility] [place] [facility] [Provider Group] (Call to establish and follow up with a primary care provider. If you already have a primary care provider, please follow up with them.) Interventions: ED Discharge Assessment Last Done: 03/06/23 21:39 Discharge Date/Time: 03/06/23 21:41 Print Language: Telugu
[2023-03-06 19:54] LABS: IDNOW Serial# 6674DD1D; Strep A Nucleic Acid Negative (Negative)
[2023-03-06 20:07] LABS: IDNOW Serial# 9DB6401D; Influenza A Negative (Negative); Influenza B2 Negative (Negative)
[2023-03-06 20:43] LABS: COVID-19 Test Negative (Negative); IDNOW Serial# 55D5AD1C
[2023-03-06] MEDS: Doxycycline Monohydrate 100 MG CAPSULE PO (21:38)
== END 2023-03-06 21:41 | disposition home or self-care (01) ==
PROVIDERS: Registered Nurse Emergency; Emergency Provider Emergency Medicine
DX: J32.9 Chronic sinusitis, unspecified (principal); M79.10 Myalgia, unspecified site; Z11.52 Encounter for screening for COVID-19; Z20.822 Contact with and (suspected) exposure to COVID-19; Z79.899 Other long term (current) drug therapy
CPT/HCPCS: 87502; 87635; 87651; 99282; 99283

== ENCOUNTER 2023-06-17 08:38 | Emergency (ER) | payer OTHER, SELFPAY ==
[2023-06-17 08:43] VITALS: BP 105/77; PULSE 75; RESP 19; TEMP 36.6; O2SAT 98; BMI 22.3
--- NOTE | 2023-06-17 09:06 | ED_ITS ---
HPI - General Adult General Chief complaint: General Medical Stated complaint: L Side Facial Swelling No Injury Time Seen by Provider: 06/17/23 09:04 Source: patient Mode of arrival: ambulatory Limitations: no limitations History of Present Illness HPI narrative: Patient is a 33 year old assigned female at with no reported medical history presenting to the emergency department today with right sided facial sw elling. Patient states that she woke up this morning with right sided facial swelling and right eye irritation. Patient denies any dizziness, lightheadedness, abdominal pain, nausea, vomiting, fever, chills, blurry vision, double vision, loss of vision, chest pain, difficulty breathing, shortness of breath, back pain, night sweats, pain with urination, increased urinary frequency, increased urinary urgency, blood in her urine or stool, syncope or a near syncopal episode, recent trauma or falls, bowel incontinence, bladder incontinence, bowel retention, bladder retention, or any other complaints at this time. Onset (ago): hour(s) Location: face and right Radiation: non-radiation Severity: mild Severity scale (1-10): 3 Relieving factors: none Exacerbating factors: none Associated symptoms: denies other symptoms Treatments prior to arrival: none Related Data Previous Rx's Medication Instructions Recorded cephalexin 500 mg capsule 500 mg PO BID 7 days #14 caps 09/01/20 prednisone 20 mg tablet 40 mg (2 x 20 mg) PO DAILY 5 days 09/01/20 #10 tabs metoclopramide HCl 10 mg tablet 10 mg PO Q6H PRN nausea and 01/09/21 (Reglan) vomiting #14 tabs doxycycline hyclate 100 mg tablet 100 mg PO BID 7 days #14 tabs 03/06/23 clindamycin HCl 300 mg capsule 300 mg PO TID 5 days #15 caps 06/17/23 prednisone 20 mg tablet 20 mg PO DAILY 7 days #7 tabs 06/17/23 Allergies Allergy/AdvReac Type Severity Reaction Status Date / Time No Known Allergies Allergy Verified 06/17/23 08:42 Review of Systems Constitutional: Constitutional: Reports no additional constitutional com plaints, Denies chills, Denies fever(s) and Denies night sweats Eyes: Eyes: Reports no additional eye complaints, Denies blurry vision, Denies change in vision, Denies diplopia, Denies eye discharge, Reports irritation (right eye), Denies loss of vision and Denies eye pain ENT: Denies dizziness Comments: right sided facial swelling Cardiovascular: Cardiovascular: Reports no additional cardiovascular comp laints, Denies chest pain, Denies lightheadedness, Denies Loss of Consciousness and Denies dyspnea Respiratory: Respiratory: Reports no additional respiratory complaints and Denies dyspnea Gastrointestinal: Gastrointestinal: Reports no additional gastrointestinal complaints, Denies abdominal pain, Denies melena, Denies hematochezia, Denies change in bowel habits and Denies change in stool character Genitourinary: Genitourinary: Denies hematuria, Denies urinary frequency, Denies dysuria, Denies urinary incontinence, Denies urinary hesitancy and Denies urinary urgency Musculoskeletal: Musculoskeletal: Reports no additional musculoskeletal complaints, Denies numbness and Denies tingling Neurologic: Denies dizziness, Denies loss of vision, Denies numbness and Denies tingling Psychiatric: Psychiatric: Reports no additional psychiatric complaints Endocrine: Endocrine: Reports no additional endocrine complaints Hematologic/Lymphatic: Hematologic/Lymphatic: Reports no additional hemato logic/lymphatic complaints Allergic/Immunologic: Allergic/Immunologic: Reports no additional allergic/immunologic complaints PMFSH Past Medical History Attestation statement: The following information was validated with the patient. Source: old records reviewed and nursing notes reviewed Medical History Low iron Anemia High cholesterol Vitamin D deficiency Social History Social History Alcohol intake: never Patient Tobacco Use Status: Never used Tobacco Advance Directives: No Advance Directives Information Provided: No Physical Exam ED Vital Signs: Vital Signs - 24 hr 06/17/23 08:43 Temperature 98 F Pulse Rate 75 Respiratory Rate 19 Blood Pressure 105/77 Pulse Oximetry 98 Oxygen Delivery Method Room Air BMI result Body Mass Index 22.3 Const General: cooperative, no acute distress, alert and awake Nutritional Appearance: well nourished Orientation/consciousness: patient oriented x3 Limitations: no limitations HENMT Head: Yes normal to inspection and Yes atraumatic Ears: hearing grossly normal bilaterally and external ears normal General nose exam: Normal external nose present, no nasal discharge noted and no epistaxis Face and sinus: Yes normal facial exam, No abrasion and No laceration Mouth: Normal oral and palatal mucosa present, no drooling and no muffled voice Eyes Other: minimal swelling present to the right upper eye lid and forehead Conjunctivae: conjunctivae normal Pupils: Equal, round and reactive pupils present EOM: EOMs intact bilaterally Neck Neck: Yes normal visual inspection, Yes full ROM and Yes no lymphadenopathy Chest Chest palpation & inspection: normal inspection of the chest Resp Effort & Inspection: normal respiratory effort and able to speak in complete sentences GI Inspection: Yes normal to inspection Neuro General: patient oriented x3 and moves all extremities Cranial nerves: Yes Equal, round and reactive pupils present Cognition (Neuro): normal cognition Motor exam (neuro): 5/5 motor strength present throughout Sensory Exam: Normal double simultaneous stimulation for sensation Coordination: [id number] test normal Extrem General: Yes normal to inspection, Yes full ROM and Yes capillary refill normal Psych Appearance: grossly normal Mental Status: mental status grossly normal Affect: normal affect Attitude: cooperative Thought process: Normal thought process present Thought content: Normal thought content present Insight: Good insight present (Psych) Medical Decision Making Medical Decision Making MDM Narrative: Patient is a 33 year old assigned female at with no reported medical history presenting to the emergency department today with right sided facial swelling. Patient's physical exam was as noted in the physical exam portion of this note. Patient's clinical presentation is most consistent with an allergic reaction vs. periorbital cellulitis, will treat for both. There is no wound or obvious cause for the swelling. No erythema, no warmth. No known contact to irritants. I explained my physical exam findings to the patient. I answered all questions asked by the patient. I stressed the importance of the patient taking her medication as prescribed. I stressed the importance of the patient following up with her primary care provider. I stressed the importance of the patient returning to the emergency department immediately if her symptoms were to worsen or if she were to develop any dizziness, shortness of breath, difficulty breathing, chest pain, blurry vision, loss of vision, nausea, vomiting, abdominal pain, fever, chills, back pain, or any other complaints. Patient verbalized agreement and understanding with this treatment plan and discharge. Differential Diagnosis Differential Diagnoses: The differential diagnosis associated with the presentation includes Contact dermatitis Allergic reaction Periorbital cellulitis Cellulitis Admission/Observation Consideration of admission/observation: Escalation of care including admission/observation considered Patient would have been admitted to the hospital had her work up had any findings where hospital admission was appropriate and her clinical presentation warranted hospital admission. Discharge Plan Discharge Clinical Impression: Facial swelling Patient Disposition: Home, Self-Care Instructions: Allergies (ED), Periorbital Cellulitis in Adults (ED) Additional Instructions: Follow up with your primary care provider. Return to the emergency department immediately if your symptoms worsen or if you develop any dizziness, shortness of breath, difficulty breathing, chest pain, blurry vision, loss of vision, nausea, vomiting, abdominal pain, fever, chills, back pain, or any other complaints. Prescriptions: New prednisone 20 mg tablet 20 mg PO DAILY 7 Days Qty: 7 0RF clindamycin HCl 300 mg capsule 300 mg PO TID 5 Days Qty: 15 0RF No Action prednisone 20 mg tablet 40 mg PO DAILY 5 Days Qty: 10 0RF cephalexin 500 mg capsule 500 mg PO BID 7 Days Qty: 14 0RF metoclopramide HCl [Reglan] 10 mg tablet 10 mg PO Q6H PRN (Reason: nausea and vomiting) Qty: 14 0RF doxycycline hyclate 100 mg tablet 100 mg PO BID 7 Days Qty: 14 0RF Referrals: [facility] [place] Family Medicine [Provider Group] (Call to establish and follow up with a primary care provider. If you already have a primary care provider, please follow up with them.) [facility] [place] [facility] [Provider Group] (Call to establish and follow up with a primary care provider. If you already have a primary care provider, please follow up with them.) [facility] [place] [facility] [Provider Group] (Call to establish and follow up with a primary care provider. If you already have a primary care provider, please follow up with them.) Interventions: ED Discharge Assessment Last Done: 06/17/23 10:06 Discharge Date/Time: 06/17/23 10:06 Print Language: Bulgarian
--- NOTE | 2023-06-17 10:05 | PC.NURSE ---
patient left ED w/o discharge paperwork. this RN called and reviewed instructions w/ patient on the phone. patient states that the providers also reviewed d/c paperwork with her in person.
== END 2023-06-17 10:06 | disposition home or self-care (01) ==
PROVIDERS: Emergency Provider Emergency Medicine Emergency Medical Services
DX: R22.0 Localized swelling, mass and lump, head (principal); R51.9 Headache, unspecified; E78.00 Pure hypercholesterolemia, unspecified; D64.9 Anemia, unspecified
CPT/HCPCS: 99282; 99283

== ENCOUNTER 2024-10-18 19:58 | Emergency (ER) | payer OTHER, SELFPAY ==
[2024-10-18 20:00] VITALS: BP 115/77; PULSE 74; RESP 16; TEMP 36.4; O2SAT 99; BMI 23.5
--- NOTE | 2024-10-18 20:00 | ECG_ITS ---
Test Reason : CHEST PAIN Blood Pressure : */* mmHG Vent. Rate : 76 BPM Atrial Rate : 76 BPM P-R Int : 154 ms QRS Dur : 72 ms QT Int : 360 ms P-R-T Axes : 65 63 60 degrees QTcB Int : 405 ms Normal sinus rhythm Normal ECG When compared with ECG of 01-Sep-2020 21:12, No significant change was found Referred By: Domenic Cardona Electronically Signed By: Hugh Cedillo
--- NOTE | 2024-10-18 20:01 | ED_ITS ---
HPI - General Adult General Chief complaint: Chest Pain Stated complaint: Chest tightness/Headache Related Data Previous Rx's ?Medication ?Instructions ?Recorded cephalexin 500 mg capsule 500 mg PO BID 7 days #14 cap s 09/01/20 prednisone 20 mg tablet 40 mg (2 x 20 mg) PO DAILY 5 days 09/01/20 #10 tabs metoclopramide HCl 10 mg tablet 10 mg PO Q6H PRN nause a and 01/09/21 (Reglan) vomiting #14 tabs doxycycline hyclate 100 mg tablet 100 mg PO BID 7 days #14 tabs 03/06/23 clindamycin HCl 300 mg capsule 300 mg PO TID 5 days #1 5 caps 06/17/23 prednisone 20 mg tablet 20 mg PO DAILY 7 days #7 tab s 06/17/23 Allergies Allergy/AdvReac Type Severity Reaction Status Date / Time No Known Allergies Allergy Verified 10/18/24 20:03 [facility] Past Medical History Medical History Low iron Anemia High cholesterol Vitamin D deficiency Social History Social History Alcohol intake: never Patient Tobacco Use Status: Never used Tobacco Advance Directives: No Do you have a plan to hurt others: No Plan Physical Exam ED Vital Signs: BMI result Body Mass Index 23.5 Course Course Course Narrative: RME, this is a rapid medical exam performed by Rm Cardona please refer to primary provider for complete H&P- 34-year-old female who is approximately 7 weeks presents for evaluation of chest pain for the last 2 days. She also complains of headache. She is . Plan for viral swab, EKG, labs. Medical Decision Making Lab Data 10/18/24 20:16 10/18/24 20:16 Labs: Lab Results 10/18/24 10/18/24 Range/Units 20:14 20:16 WBC 11.5 H (4.8-10.8) X10*3/uL RBC 4.30 (4.20-5.50) X10*6/uL Hgb 12.9 (12.0-16.0) g/dl Hct 38.3 (37.0-47.0) % MCV 89.1 (80.0-98.0) fL MCH 30.0 (27.0-33.0) pg MCHC 33.7 (31.0-35.0) g/dl RDW 12.8 (11.0-16.0) % Plt Count 290 (160-400) X10*3/uL MPV 11.3 (9.4-12.3) fL Immature Gran % (Auto) 0.7 H (0.0-0.4) % Neut % (Auto) 70.3 (45-73) % Lymph % (Auto) 16.4 L (20-40) % Isabella % (Auto) 10.7 (2-11) % Eos % (Auto) 1.6 (0-4) % Baso % (Auto) 0.3 (0-2) % Lymph # (Auto) 1.9 (1.2-4.9) X10*3/uL Isabella # (Auto) 1.2 (0.1-1.2) X10*3/uL Eos # (Auto) 0.2 (0.0-0.4) X10*3/uL Baso # (Auto) 0.0 (0.0-0.2) X10*3/uL Abs Immat Gran (auto) 0.08 H (0.00-0.03) X10*3/uL Absolute Neuts (auto) 8.1 (2.0-8.3) x10*3/uL Absolute Nucleated RBC 0.000 (0.0-0.012) X10*3/uL Nucleated RBC % (auto) 0.0 (0.0-0.2) /100WBC Sodium 138 (135-145) mmol/L Potassium 3.6 (3.3-5.1) mmol/L Chloride 110 H (96-108) mmol/L Carbon Dioxide 19 L (22-29) mmol/L Anion Gap 13 (12-20) BUN 11 (9-16) mg/dL Creatinine 0.63 (0.5-1.4) mg/dL Estim Creat Clear Calc 104.0 Estimated GFR > 60 Random Glucose 78 (60-115) mg/dL Calcium 9.3 (8.4-10.2) mg/dL Total Bilirubin 0.1 (0.0-1.0) mg/dL AST 19 (5-31) U/L ALT 16 (0-31) U/L Alkaline Phosphatase 58 (39-117) U/L Troponin I High Sens < 2.7 (<3.5-17.0) ng/L Total Protein 6.9 (6.5-8.0) g/dL Albumin 4.4 (3.5-5.0) g/dL Lipase 14 (8-78) U/L Beta HCG, Quant 03092 mIU/mL Influenza Type A (PCR) NEGATIVE (Negative) Influenza Type B (PCR) NEGATIVE (Negative) RSV RNA Qual (PCR) NEGATIVE (Negative) SARS-CoV-2 RNA (RT-PCR) NEGATIVE (Negative) Discharge Plan Discharge Clinical Impression: Chest pain Patient Disposition: Left Without Being Seen Interventions: LWBS Worksheet Last Done: 10/19/24 00:42 Discharge Date/Time: 10/19/24 00:42
[2024-10-18 20:24] LABS: MANUAL DIFF FLAG NO
[2024-10-18 20:26] LABS: Basophils Percent Auto 0.3 % (0-2); Eosinophils Absolute Auto 0.2 X10*3/uL (0.0-0.4); Eosinophils Percent Auto 1.6 % (0-4); Hematocrit 38.3 % (37.0-47.0); Hemoglobin 12.9 g/dl (12.0-16.0); Imm Gran Abs Auto 0.08 X10*3/uL (0.00-0.03); Imm Gran Pct Auto 0.7 % (0.0-0.4); Lymphocytes Absolute Auto 1.9 X10*3/uL (1.2-4.9); Lymphocytes Percent Auto 16.4 % (20-40); Mean Corpuscular HGB Conc 33.7 g/dl (31.0-35.0); Mean Corpuscular Volume 89.1 fL (80.0-98.0); Mean Platelet Volume 11.3 fL (9.4-12.3); Monocytes Absolute Auto 1.2 X10*3/uL (0.1-1.2); Monocytes Percent Auto 10.7 % (2-11); Neutrophils Absolute Auto 8.1 x10*3/uL (2.0-8.3); Neutrophils Percent Auto 70.3 % (45-73); Platelet Count 290 X10*3/uL (160-400); Red Cell Distribution Width 12.8 % (11.0-16.0); White Blood Count 11.5 X10*3/uL (4.8-10.8)
[2024-10-18 20:58] LABS: Troponin-I High Sensitivity < 2.7 ng/L (<3.5-17.0)
[2024-10-18 21:02] LABS: Alanine Aminotransferase 16 U/L (0-31); Albumin Level 4.4 g/dL (3.5-5.0); Alkaline Phosphatase 58 U/L (39-117); Anion Gap 13 (12-20); Aspartate Amino Transferase 19 U/L (5-31); Bilirubin Total 0.1 mg/dL (0.0-1.0); Blood Urea Nitrogen 11 mg/dL (9-16); Calcium 9.3 mg/dL (8.4-10.2); Carbon Dioxide 19 mmol/L (22-29); Chloride 110 mmol/L (96-108); Estimated Glomerular Filt Rate > 60; Glucose Random 78 mg/dL (60-115); Lipase 14 U/L (8-78); Potassium 3.6 mmol/L (3.3-5.1); Sodium 138 mmol/L (135-145); Total Protein 6.9 g/dL (6.5-8.0)
[2024-10-18 21:14] LABS: Influenza A PCR NEGATIVE (Negative); Influenza B PCR NEGATIVE (Negative); Resp Syncy Virus RNA Qual PCR NEGATIVE (Negative); SARS COV2 PCR INHOUSE NEGATIVE (Negative)
== END 2024-10-19 00:42 | disposition left against medical advice (07) ==
PROVIDERS: Physician Assistant; Emergency Provider Emergency Medicine
DX: R07.9 Chest pain, unspecified (principal); Z03.818 Encounter for observation for suspected exposure to other biological agents ruled out; Z53.21 Procedure and treatment not carried out due to patient leaving prior to being seen by health care provider
CPT/HCPCS: 0241U; 80053; 83690; 84484; 84702; 85025; 93005; 99283

== ENCOUNTER → 2024-10-18 20:00 | Outpatient (BNV) | payer OTHER, SELFPAY | PROVIDERS: Emergency Provider Emergency Medicine; Visit Provider Internal Medicine Cardiovascular Disease | DX: R07.9 Chest pain, unspecified (principal) | CPT/HCPCS: 93010 ==

== ENCOUNTER 2024-12-21 10:03 | Emergency (ER) | payer OTHER, SELFPAY ==
--- NOTE | ~2024-12-21 | US_ITS ---
EXAMINATION: US , LIMITED CLINICAL INFORMATION: 34-year-old woman. Abdominal pain. COMPARISON: None available. TECHNIQUE: Real-time transabdominal obstetric pelvic ultrasound performed using grayscale and color Doppler technique. FINDINGS: The cervix is closed and measures 2.9 cm in maximal length. There is no funneling. The placenta is anterior and approximately 3 cm to the inner orifice of the cervix. The presentation is variable. There is a single intrauterine gestation. There is movement of the fetus. The heart rate is 161 beats per minutes. US/US OB limited IMPRESSION: Limited evaluation demonstrated the single viable intrauterine gestation. Cervix is closed and measures 2.9 cm.. No gross placenta previa or low insertion. Recommend follow-up. Electronically signed by: Roel Chowdary MD 12/21/2024 03:20 PM EDT
--- NOTE | 2024-12-21 10:23 | ED_ITS ---
HPI - General Adult General Chief complaint: Abdominal Pain Stated complaint: preg+, abd pain Time Seen by Provider: 12/21/24 13:07 Source: patient Mode of arrival: ambulatory Limitations: no limitations History of Present Illness ED Provider: Mckenna Barlow PA-C HPI narrative: Patient is a 34 year old assigned female at with a history of currently approximately 16 weeks presenting to the emergency department today with lower abdominal pain. Patient states that over the last 3 days she has had lower abdominal pain that radiates into her upper legs. Patient states that she is not having any vaginal discharge or bleeding. Patient denies any other complaints at this time. Onset (ago): day(s) (3) Location: abdomen Relieving factors: none Exacerbating factors: none Associated symptoms: denies other symptoms Treatments prior to arrival: none Related Data Previous Rx's ?Medication ?Instructions ?Recorded cephalexin 500 mg capsule 500 mg PO BID 7 days #14 cap s 09/01/20 prednisone 20 mg tablet 40 mg (2 x 20 mg) PO DAILY 5 days 09/01/20 #10 tabs metoclopramide HCl 10 mg tablet 10 mg PO Q6H PRN nause a and 01/09/21 (Reglan) vomiting #14 tabs doxycycline hyclate 100 mg tablet 100 mg PO BID 7 days #14 tabs 03/06/23 clindamycin HCl 300 mg capsule 300 mg PO TID 5 days #1 5 caps 06/17/23 prednisone 20 mg tablet 20 mg PO DAILY 7 days #7 tab s 06/17/23 cephalexin 500 mg capsule 500 mg PO Q6H 7 days #28 cap s 12/21/24 Allergies Allergy/AdvReac Type Severity Reaction Status Date / Time No Known Allergies Allergy Verified 12/21/24 10:29 Review of Systems 2 Constitutional: Constitutional: Reports as per HPI Eyes: Eyes: Reports as per HPI ENT: Reports as per HPI Cardiovascular: Cardiovascular: Reports as per HPI Respiratory: Respiratory: Reports as per HPI Gastrointestinal: Gastrointestinal: Reports abdominal pain Genitourinary: Genitourinary: Reports as per HPI Musculoskeletal: Musculoskeletal: Reports as per HPI Integumentary/Breasts: Skin/Breast: Reports as per HPI Neurologic: Reports as per HPI Psychiatric: Psychiatric: Reports as per HPI Endocrine: Endocrine: Reports as per HPI Hematologic/Lymphatic: Hematologic/Lymphatic: Reports as per HPI Allergic/Immunologic: Allergic/Immunologic: Reports as per HPI [facility] Past Medical History Attestation statement: The following information was validated with the patient. Source: old records reviewed and nursing notes reviewed Medical History Low iron Anemia High cholesterol Vitamin D deficiency Social History Social History Alcohol intake: former Patient Tobacco Use Status: Never used Tobacco Smoked in Last 30 Days: No Use of substances other than those prescribed or required for medical reasons: No Advance Directives: No Advance Directives Information Provided: Yes Physical Exam ED Vital Signs: Vital Signs - 24 hr 12/21/24 10:24 Temperature 97.4 F Pulse Rate 85 Respiratory Rate 16 Blood Pressure 124/67 Pulse Oximetry 98 Oxygen Delivery Method Room Air BMI result Body Mass Index 23.0 Const General: cooperative, no acute distress, alert and awake Nutritional Appearance: well nourished Orientation/consciousness: patient oriented x3 HENMT Head: Yes normal to inspection and Yes atraumatic Ears: hearing grossly normal bilaterally and external ears normal General nose exam: Normal external nose present, no nasal discharge noted and no epistaxis Face and sinus: Yes normal facial exam, No abrasion and No laceration Mouth: Normal oral and palatal mucosa present, no drooling and no muffled voice Eyes General: appearance normal, both eyes and all related structures Periorbital: periorbital findings normal Eyelids: Yes eyelids normal Conjunctivae: conjunctivae normal Pupils: Equal, round and reactive pupils present EOM: EOMs intact bilaterally Neck Neck: Yes normal visual inspection and Yes full ROM Resp Effort & Inspection: normal respiratory effort and able to speak in complete sentences Neuro General: patient oriented x3, moves all extremities and CN's II-XI intact bilaterally Cranial nerves: Yes Equal, round and reactive pupils present Cognition (Neuro): normal cognition Extrem General: Yes normal to inspection, Yes full ROM and Yes capillary refill normal Psych Appearance: grossly normal Mental Status: mental status grossly normal Affect: normal affect Attitude: cooperative Thought process: Normal thought process present Thought content: Normal thought content present Insight: Good insight present (Psych) Course Course Course Narrative: This is a rapid medical exam performed by Toya Romo NP: Additional HPI, ROS, PE not included below will be deferred to primary provider. Patient is a 34y/o F 4 mos gestation presenting to the ED with complaint of lower abdominal cramping x 3 days. Denies any vaginal bleeding or other abnormal discharge. Took Tylenol without relief. OB is at [place], did not call there. Plan: labs, UA Medical Decision Making Medical Decision Making [facility] Narrative: Patient is a 34 year old assigned female at with a history of currently approximately 16 weeks presenting to the emergency department today with lower abdominal pain. Patient's physical exam was unremarkable. Patient's blood work was unremarkable. Patient's urine showed a possible UTI, given her status - will treat. Patient's OB US showed a normal intrauterine . I explained my physical exam findings as well as all test results to the patient. I answered all questions asked by the patient. I stressed the importance of the patient taking her medication as directed (either prescribed or as the over the counter packaging recommends). I stressed the importance of the patient following up with her primary care provider and her OBGYN. I stressed the importance of the patient returning to the emergency department immediately if her symptoms were to worsen or if she were to develop any dizziness, shortness of breath, difficulty breathing, chest pain, blurry vision, loss of vision, nausea, vomiting, abdominal pain, fever, chills, back pain, or any other complaints. Patient verbalized agreement and understanding with this treatment plan and discharge. Differential Diagnosis Differential Diagnoses: The differential diagnosis associated with the presentation includes Abd pain UTI Admission/Observation Consideration of admission/observation: Escalation of care including admission/observation considered Patient would have been admitted to the hospital had her work up had any findings where hospital admission was appropriate and her clinical presentation warranted hospital admission. Lab Data [facility] Lab Attestation statement: I reviewed the patient's lab results. My interpretation of these results are in the [facility] Rationale portion of this note. 12/21/24 10:39 12/21/24 10:39 Labs: Lab Results 12/21/24 12/21/24 Range/Units 10:39 13:20 WBC 13.3 H (4.8-10.8) X10*3/uL RBC 4.12 L (4.20-5.50) X10*6/uL Hgb 12.8 (12.0-16.0) g/dl Hct 36.7 L (37.0-47.0) % MCV 89.1 (80.0-98.0) fL MCH 31.1 (27.0-33.0) pg MCHC 34.9 (31.0-35.0) g/dl RDW 12.5 (11.0-16.0) % Plt Count 256 (160-400) X10*3/uL MPV 11.1 (9.4-12.3) fL Immature Gran % (Auto) 0.7 H (0.0-0.4) % Neut % (Auto) 85.2 H (45-73) % Lymph % (Auto) 8.1 L (20-40) % [place] % (Auto) 5.4 (2-11) % Eos % (Auto) 0.4 (0-4) % Baso % (Auto) 0.2 (0-2) % Lymph # (Auto) 1.1 L (1.2-4.9) X10*3/uL [place] # (Auto) 0.7 (0.1-1.2) X10*3/uL Eos # (Auto) 0.1 (0.0-0.4) X10*3/uL Baso # (Auto) 0.0 (0.0-0.2) X10*3/uL Abs Immat Gran (auto) 0.09 H (0.00-0.03) X10*3/uL Absolute Neuts (auto) 11.3 H (2.0-8.3) x10*3/uL Absolute Nucleated RBC 0.000 (0.0-0.012) X10*3/uL Nucleated RBC % (auto) 0.0 (0.0-0.2) /100WBC Sodium 138 (135-145) mmol/L Potassium 3.9 (3.3-5.1) mmol/L Chloride 109 H (96-108) mmol/L Carbon Dioxide 22 (22-29) mmol/L Anion Gap 11 L (12-20) BUN 8 L (9-16) mg/dL Creatinine 0.60 (0.5-1.4) mg/dL Estim Creat Clear Calc 109.2 Estimated GFR > 60 Random Glucose 80 (60-115) mg/dL Calcium 9.0 (8.4-10.2) mg/dL Total Bilirubin 0.2 (0.0-1.0) mg/dL AST 16 (5-31) U/L ALT 10 (0-31) U/L Alkaline Phosphatase 47 (39-117) U/L Total Protein 6.7 (6.5-8.0) g/dL Albumin 4.1 (3.5-5.0) g/dL Urine Color Yellow Urine Appearance Cloudy Urine pH 6.5 (5.0-9.0) Ur Specific [place] 1.020 (1.005-1.025) Urine Protein Negative (Neg-Trace) mg/dL Urine Glucose (UA) Negative (Negative) mg/dL Urine Ketones >=160 (Negative) mg/dL Urine Blood Negative (Negative) Urine Nitrite Negative (Negative) Ur Leukocyte Esterase Small (1+) H (Negative) Urine RBC 0-2 (0-2) /HPF Urine WBC 0-5 (0-5) /HPF Ur Squamous Epith Cells >20 (0-2) /HPF Urine Bacteria 3+ (None Seen) Hyaline Casts 0-2 (0-2) /LPF Independent Interpretation I performed an independent interpretation of an: Ultrasound Interpretation: My interpretation is in agreement with the radiologist's impression of this imaging study. L EXAMINATION: US , LIMITED CLINICAL INFORMATION: 34-year-old woman. Abdominal pain. COMPARISON: None available. TECHNIQUE: Real-time transabdominal obstetric pelvic ultrasound performed using grayscale and color Doppler technique. FINDINGS: The cervix is closed and measures 2.9 cm in maximal length. There is no funneling. The placenta is anterior and approximately 3 cm to the inner orifice of the cervix. The presentation is variable. There is a single intrauterine gestation. There is movement of the fetus. The heart rate is 161 beats per minutes. US/US OB limited IMPRESSION: Limited evaluation demonstrated the single viable intrauterine gestation. Cervix is closed and measures 2.9 cm.. No gross placenta previa or low insertion. Recommend follow-up. Electronically signed by: Roel Chowdary MD 12/21/2024 03:20 PM EDT RP Dictated By: Roel Brunson MD Signed By: Electronically signed by Roel Robles MD 12/21/24 1520 Radiology Impression Discussion of test interpretation with radiology: I have reviewed the radiologist's reading. Prescription Management I considered prescription management with: Antibiotic (patent prescribed an antibiotic for possible UTI) Discharge Plan Discharge Clinical Impression: UTI (urinary tract infection), Patient Disposition: Home, Self-Care Instructions: (ED), Urinary Tract Infection in (ED) Additional Instructions: Your testing today was reassuring there is nothing negatively impacting your . However, you do have a urinary tract infection. IT IS CRUCIAL YOU TAKE THE ANTIBIOTIC PRESCRIBED AND FOLLOW UP WITH YOUR OBGYN. IF you are prescribed home medications and/or you are taking over the counter medications at home - it is very important you continue to do so as prescribed / directed unless told otherwise. Follow up with a primary care provider. Return to the emergency department immediately if your symptoms worsen or if you develop any numbness, tingling, dizziness, shortness of breath, difficulty breathing, chest pain, blurry vision, loss of vision, nausea, vomiting, abdominal pain, fever, chills, back pain, or any other complaints. L If you do not have a primary care provider - call any of the below numbers to establish and follow up with a primary care provider. [facility] Primary Care ([place]) [phone] [place] [address], [address] [facility] Primary Care ([facility]) [phone] [place] [address], [address] [facility], [address] [facility] Primary Care ([address] [place]) [phone] [place] [address], [address] [facility], [address] [facility] Primary Care ([place]) [phone] [place] [address] [address] [facility], [address] [facility] Family Medicine [phone] [address] [facility], [address] Please see the information below about our Patient Portal. If you are not yet enrolled in the [facility] Patient Portal, you will receive an enrollment email invitation following your visit to any [facility] care setting. You may also self-enroll in the Patient Portal by visiting our website: [email or web address] The following information is required to access the Patient Portal: - Your [facility] Medical Record Number - Your personal home email address (must match what is in your electronic medical record, Registration staff can assist with this) - Name - Date of Capabilities of the Patient Portal: - Message some providers - View upcoming appointments - Access your health summary, medical history, and visit history - View current conditions and allergies - View procedure and lab results - View your medications, including guidelines, side effects, and precautions - Complete pre-appointment questionnaires requested by your provider - Ready summary reports of your office visits and procedures To access the Patient Portal Mobile [employer], follow these directions: - Search Sqrrl in the [employer] Store or Zapoint Store - Download the [employer] - Search for [facility] - Enter your login/password Prescriptions: New cephalexin 500 mg capsule 500 mg PO Q6H 7 Days Qty: 28 0RF No Action prednisone 20 mg tablet 40 mg PO DAILY 5 Days Qty: 10 0RF cephalexin 500 mg capsule 500 mg PO BID 7 Days Qty: 14 0RF metoclopramide HCl [Reglan] 10 mg tablet 10 mg PO Q6H PRN (Reason: nausea and vomiting) Qty: 14 0RF doxycycline hyclate 100 mg tablet 100 mg PO BID 7 Days Qty: 14 0RF prednisone 20 mg tablet 20 mg PO DAILY 7 Days Qty: 7 0RF clindamycin HCl 300 mg capsule 300 mg PO TID 5 Days Qty: 15 0RF Discharge Date/Time: 12/21/24 15:52 Print Language: [place]ese
[2024-12-21 10:24] VITALS: BP 124/67; PULSE 85; RESP 16; TEMP 36.3; O2SAT 98; BMI 23.0
[2024-12-21 10:47] LABS: MANUAL DIFF FLAG NO
[2024-12-21 10:49] LABS: Hematocrit 36.7 % (37.0-47.0); Hemoglobin 12.8 g/dl (12.0-16.0); Imm Gran Abs Auto 0.09 X10*3/uL (0.00-0.03); Imm Gran Pct Auto 0.7 % (0.0-0.4); Lymphocytes Absolute Auto 1.1 X10*3/uL (1.2-4.9); Mean Corpuscular HGB Conc 34.9 g/dl (31.0-35.0); Mean Corpuscular Hemoglobin 31.1 pg (27.0-33.0); Mean Corpuscular Volume 89.1 fL (80.0-98.0); NRBC Abs Auto 0.000 X10*3/uL (0.0-0.012); NRBC Pct Auto 0.0 /100WBC (0.0-0.2); Platelet Count 256 X10*3/uL (160-400); Red Blood Count 4.12 X10*6/uL (4.20-5.50); White Blood Count 13.3 X10*3/uL (4.8-10.8)
[2024-12-21 11:12] LABS: Alanine Aminotransferase 10 U/L (0-31); Albumin Level 4.1 g/dL (3.5-5.0); Alkaline Phosphatase 47 U/L (39-117); Anion Gap 11 (12-20); Aspartate Amino Transferase 16 U/L (5-31); Blood Urea Nitrogen 8 mg/dL (9-16); Calcium 9.0 mg/dL (8.4-10.2); Carbon Dioxide 22 mmol/L (22-29); Chloride 109 mmol/L (96-108); Creatinine Clr Calc Pharmacy 109.2; Estimated Glomerular Filt Rate > 60; Potassium 3.9 mmol/L (3.3-5.1); Sodium 138 mmol/L (135-145); Total Protein 6.7 g/dL (6.5-8.0)
[2024-12-21 13:33] LABS: Appearance Urine Cloudy; Glucose Urine UA Negative (Negative); PH 6.5 (5.0-9.0); Specific Gravity - Urine 1.020 (1.005-1.025); UMIC TRIGGER UACC YES
[2024-12-21 13:41] LABS: UACC Culture Trigger YES
--- OUTSIDE RECORDS SUMMARY | 2024-12-21 14:32 | XMS_ITS | Clinical Summary ---
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 Name Role Phone Radha Dave MD Primary Care Provider Unavailabl e Immunizations Immunization Administration Dates Next Due DTP 11/03/1994, 2,02/21/1991,09/02,1990 HPV, Quadrivalent 12/13/2008 Hep B, ped/adol 05/05/2002,05/31/2001,04/28/2001 Hib (PRP-T) 03/12/1992,02/21/1991 MMR 11/03/1994,03/12/1992 Meningococcal Conj (Menactra) MCV4P 12/13/2008 OPV 11/03/1994, 2,1990,05/05 Td (adult) (MBL), 2 Lf tetan us toxoid, PF, adsorbed 04/28/2001 Tdap 12/13/2008 Varicella 08/01/1999 Social History Tobacco Use Types Packs/Day Years Used Date Smoking Tobacco: Never Assessed Comments Unknown Sex and Gender Information Value Date Recorded Sex Assigned at Not on file Legal Sex Female 4:27 PM EDT Gender Identity Not on file Sexual Orientation Not on file Plan of Treatment Health Maintenance Due Date Last Done Comments Varicella Vaccines (2 of 2 - 2-dose childhood series) 10/24/1999 08/01/1999 HPV Vaccines (2 - 3-dose series) 01/10/2009 12/13/2008 DTaP,Tdap,and Td Vaccines (7 - Td or Tdap) 12/13/2018 12/13/2008, 04/28/2001, 11/03/1994, Additional history exists COVID-19 Vaccine ( season) 2024 Influenza Vaccines (#1) 2024 HIB Vaccines Completed 03/12/1992, 02/21/1991 IPV Vaccines Completed 11/03/1994, 110 01/1992, 1990, Additional history exists MMR Vaccines Completed 11/03/1994, 03/12/1992 Hepatitis B Vaccines Completed 05/05/2002, 05/31/2001, 04/28/2001 Meningococcal Vaccine Completed 12/13/2008 Hepatitis A Vaccines Aged Out No long er eligible based on patient's age to complete this topic Men B Vaccine Aged Out No longer elig ible based on patient's age to complete this topic Pneumococcal Vaccine Aged Out No long er eligible based on patient's age to complete this topic Care Teams Blow Machine Tender Starch Spraying Relationship Specialty Start Date End Date Radha Dave MD PCP - General 12/12/16
--- OUTSIDE RECORDS SUMMARY | 2024-12-21 14:32 | XMS_ITS ---
Author Name [facility] Organization Unknown Care Team Organization Name Specialty Phone Email Start Date End Da te [facility] Primary [facility] 03/11/202212/02
--- OUTSIDE RECORDS SUMMARY | 2024-12-21 14:33 | XMS_ITS | Clinical Summary ---
Author Organization [facility] [address] [facility] Address [address] [place] [phone] Phone Care Team Providers Care [facility] Name Role Phone Wilder Moya MD Primary Care Provider Allergies Active Allergy Reactions Criticality Noted Date Comments Benzocaine Swelling 06/01/2020 Fluconazole Hives 07/19/2020 Medications cholecalciferol (VITAMIN D-3) 50 mcg (2,000 unit) capsule Take 1 capsule (2,000 Units total) by mouth 1 (one) time each day. 2 Active clotrimazole-be tamethasone (LOTRISONE) 1-0.05 % cream Apply topically 2 (two) times a day. To area sparingly for up to two weeks. 2 Active vitamin iron fum-folic acid 27-0.8 mg per tabletIndicatio ns: test positive Take 1 tablet by mouth 1 (one) time each day. 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 [facility] site: [facility]: [address] [place] [address] ([phone]) 2. Delivery site: [facility] 3. Mobile Mommas: No 4. Dating criteria: LMP 5. Blood type: Unknown 6. Genetic screening: Date: Result: Panorama: Low risk XY Horizon: Nuchal: Ordered Survey: MSAFP: 6. GBS: Positive in urine 7. FOB name: Leon 8. Plans A. Epidural or other pain management - B. Labor support identified - C. Tdap - Date: Flu - Date: D. Breast or Bottle feed: Both Breast and Bottle feeding E. Baby's name - F. Circumcision - 9. Hospital Course: Low grade squamous intraepit helial lesion (LGSIL) on cervical Pap smear 12/03/2020 Overview (11/10/2024): Colposcopy 12/03/20 TAVIA I Repeat pap in 1 year 2023: PAP neg Constipation 05/27/2019 Pelvic pain 05/27/2019 Overview (05/06/2024): Last Assessment & Plan: I explained to Imani that her pain is unlikely related to Landing Signal Officer organs based on history, normal exam, and normal US. I explained more likely GI related. I encouraged her to get on a regular bowel regimen. I encouraged her to take Senna BID with at least 64 oz of water and increased fiber in her diet, as well as to see GI. Referral placed. Patient agreed. She was informed that she should hear back in 1-2 weeks with an appointment date. If not, she should call back to our office and inquire on getting this arranged. She voiced understanding and agreed. Vitamin D deficiency 05/18/2019 Estimated Date of Delivery Comme nts Yes 06/02/2025 Date entered sam or to episode creation Encounters Date Type Department Care Team Description 11/25/2024 8:00 AM EDT Ancillary Procedure Maternal Medicine - [address] [phone] Encounter for supervision of normal first in first trimester; Multigravida of advanced maternal age in first trimester; Encounter for screening for malformations; Encounter for nuchal translucency testing; Advanced maternal age in multigravida, first trimester 11/16/2024 Telephone Obstetrics and Gynecology - [address] [phone] Gerda Berrios MA 11/10/2024 10:00 AM EDT Clinical Support Obstetrics and Gynecology - [address] [phone] care, subsequent in first trimester (Primary Dx); Encounter for supervision of normal first in first trimester; Multigravida of advanced maternal age in first trimester; 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; Low grade squamous intraepithelial lesion (LGSIL) on cervical Pap smear 10/04/2024 11:15 AM EDT Office Visit Obstetrics and Gynecology - [address] [phone] Alla Reed, FLEX Bacterial vaginitis (Primary Dx); test positive; Irregular menstrual cycle; Screen for STD (sexually transmitted disease); Vaginal odor from Last 3 Months Immunizations Name Administration Dates Next Due HPV 9-valent (Gardisil) 9yo to less than 46yo HPV, Quadrivalent 08/02/2013,05/13/2013 Pfizer SARS-CoV-2 COVID-19, mRNA, LNP-S, preservative free 11/09/2020 Tdap Tetanus diptheria acell ular pertussis (Boostrix; Adacel) 7yo and older 12/24/2010 Surgical History Surgery Date Site/Laterality Comments OTHER SURGICAL HISTORY PROCEDURE: DENIES PREVIOUS SURGERY Medical History Medical History Date Comments Anemia DX:Anemia Anxiety state DX:Anxiety state Vitamin D deficiency DX:Vitamin D deficiency Low grade squamous intraepit helial lesion (LGSIL) on cervical Pap smear 12/03/2020 DX:Low grade squa mous intraepithelial lesion (LGSIL) on cervical Pap smear Asthma as a child Family History Medical History Relation Name Comments Breast cancer Aunt maternal great aunt Colon cancer Father Anemia Maternal Grandfather Diabetes Maternal Grandmother catarac t, HTN, cholesterol Hypertension Mother hypercholestero lemia No Known Problems Sister Ovarian cancer Neg Hx Pancreatic cancer Neg Hx Prostate cancer Neg Hx Uterine cancer Neg Hx Relation Name Status Comments Aunt Great Aunt Father Alive Maternal Grandfather Alive Maternal Grandmother Alive Mother Alive Sister Alive Uncle Alive Great uncle Social History Tobacco Use Types Packs/Day Years Used Date Smoking Tobacco: Never Smokeless Tobacco: Never Tobacco Cessation:Counseling Given: Not Answered Alcohol Use Standard Drinks/Week Comments Yes 0 (1 standard drink = 0.6 oz pur e alcohol) Estimated Date of Delivery Comme nts Yes 06/02/2025 Date entered sam or to episode creation Sex and Gender Information Value Date Recorded Sex Assigned at Not on file Legal Sex Female 4:51 AM EST Gender Identity Not on file Sexual Orientation Not on file Obstetrics History Para Term AB IAB SAB Ectopic Multiple Livin g Live Births 3 2 2 2 2 Date Outcome GA Total Labor Labor/2nd/3rd Weight Sex Type Anes PTL Brooke A1 A5 Name Clin 08/24 Term 2892 g (102 oz) F Vag-S pont Living [facility] 07/19 Term 3685 g (130 oz) M Vag-S pont Living [facility] Current Summary Episode Dates Number of Fetuses Estimated Date of Delivery 11/09/2024 - Present (12/21/2024) 06/02/2025 (based on Alternate FAUZIA Entry) Dating Summary Based On FAUZIA GA Diff Last Menstrual Period on 08/26/2024 06/02/2025 Same Alternate FAUZIA Entry 06/02/2025 Working Comment:Date entered prior t o episode creation Overview and Plan Support person:Leon Delivery Plans Post-Delivery Plans Planned delivery method:Vaginal Feeding intentions:Breast and Formula Feeding Acceptable blood products:All Vitals Pregravid Weight Height TWG (As of 12/21/2024) Pregrav id BMI 59 kg (130 lb) 1.6 m (63 ) 1.814 kg (4 lb) 23.03 Notes Progress Notes - Clinical Viramontes pport - 11/10/2024 - GA:10w6d 11/10/2024 - w6d - Tohsa Fam RN Imani Kinght is a 34 y.o. old female at 10w6d. This is Planned. The patient feels happy about the . The FOB is supportive. Patient's last menstrual period was Patient's last menstrual period was 08/26/2024. (exact date)., which would make her currently 10w6d with an Estimated Date of Delivery: 06/02/25. She is certain of her date. An ultrasound has not been ordered to confirm dating Patient has significant history of: none OB Past Medical History: Have you had or do you currently have: Diabetes? No Hypertension? No Heart disease, Mitral valve Prolapse, or Rheumatic fever? No An Autoimmune disease such as Lupus or Rheumatoid Arthritis? No Epilepsy, Seizures, or Spells? No Migraine Headaches? No Stroke or loss of function or sensation? No Additional Questions: Have you ever been treated for anxiety and/or depression? Yes- no meds, has therapists Are you having problems with crying spells or loss of self-esteem? No Have you ever required psychiatric care? No Have you ever had hepatitis, liver disease or jaundice? No Have you ever been treated for blood clots in your veins, deep venous thrombosis, inflammation in the veins, thrombosis, phlebitis, pulmonary embolism or varicosities? No Have you had excessive bleeding after surgery or dental work? No Do you bleed more than other women after a cut or scratch? No Do you have a history of anemia? Yes Have you ever had Thyroid problems or taken Thyroid medications? No Do you have any other Endocrine Problems (ie. PCOS)? No Have you ever been in a major accident or suffered serious trauma? No Within the last year, has anyone hit, slapped, kicked or otherwise hurt you? No In the last year, has anyone forced you to have sex when you didn't want to? No Do you feel safe at home? Yes Have you ever received a blood transfusion? No Would you refuse a blood transfusion if a doctor judged to be medically necessary? No Would you rather than receive a blood transfusion? No If you answered yes to the above questions, is this for episcopalian reasons? N/A Do you know what your blood type is or if you are Rh Negative? unknown Have you ever had abnormal antibodies in your blood? unknown Have you ever had asthma? Yes Have you every had Tuberculosis? No Have you ever had any breast problems? No Have you ever breast fed? Yes Have you ever had any gynecological surgical procedures such as cervical conization, LEEP procedure, Laser treatment, cryosurgery of the cervix or dilation and curettage, etc? No Have you had any other surgical procedures? No Have you ever been hospitalized overnight for a non-surgical reason excluding normal delivery? No Have you ever had anesthesia complications? No Have you ever had an abnormal pap smear? Yes Do you have a history of abnormalties of the uterus? No Did your mother take PAOLO or any other hormones when she was with you? No Did it take more than one year to become ? No Have you ever been evaluated or treated for infertility? No Is there a history of medical problems in your family which you feel might adversely affect your health or ? No Do you have any other problems we have not asked you about which you feel may be important for us to know for this ? No Do you currently have any of the following symptoms since your last menstrual period: Abdominal pain, blood in the stool or urine, chest pain, shortness of breath, coughing or vomiting up blood, your heart racing or skipping beats, nausea and/or vomiting, pain on urination, or vaginal discharge or vaginal bleeding? Yes-fatigue,breast tenderness Genetic Screening/Teratology Counseling- Includes patient, baby's father, or anyone in either family with: Patient's age 35 years or older as of estimated date of delivery Yes Thalassemia (Czech, Irish, Mediterranean, or background): MCV less than 80 No Neural tube defect (Meningomyelocele, Spina bifida, or Anencephaly) No Congenital heart defect No Down syndrome No Petar-Sachs (Ashkenazi Buddhist, Cajun, [place]) No Dejan disease (Ashkenazi Buddhist) No Familial dysautonomia (Ashkenazi Buddhist) No Sickle cell disease or trait () No Hemophilia or other blood disorders No Muscular dystrophy No Cystic fibrosis No [place]'s chorea No Intellectual disability and/or autism No If yes, was the person tested for Fragile X? N/A Other inherited genetic or chromosomal disorder No Maternal metabolic disorder (eg. Type 1 diabetes, PKU) No Patient or baby's father had child with defects not listed above No Recurrent loss, or a stillbirth No Medications (including supplements, vitamins, herbs, or OTC drugs)/illicit/recreational drugs/alcohol since last menstrual period No If yes, agent(s) and strength/dosage: Any other No OB Infection History: Do you object to being tested for Hepatitis B? No Do you object to being tested for HIV? No Do you feel that you are at high risk for coming contact with the AIDS virus? No Have you ever been treated for tuberculosis? No Have you ever received the BCG vaccine? No Have you ever had a positive skin test for Tuberculosis? No Do you live with someone who has Tuberculosis? No Have you ever been exposed to Tuberculosis? No Do you have Genital Herpes? No Does your partner have Genital Herpes? No Have you had a rash or viral illness since your last period? No Have you ever had Gonorrhea, Chlamydia, Syphilis, Venereal Warts, Trichomoniasis, Pelvic Inflammatory Disease (PID) or any other sexually transmitted disease? No Do you know if you are a Group B Streptococcus Carrier? unknown Did you have the Chicken Pox/Varicella? no Were you vaccinated against Chicken Pox/Varicella? unknown Have you had any other infectious diseases? No Imani Knight has been instructed on the following: random urine drug screening policy and an initial urine drug screen has been ordered. Imani Knight has also been informed of the citrix consultant provider recommendation for first trimester nuchal lucency testing to be performed during her . Imani Knight has also been made aware of the time sensitive nature for this testing to be completed. . The patient now has a gestational age of 10w6d. The patient has agreed that she does want nuchal lucency testing. Ethnicity Based Genetic Testing has been reviewed and the [employer] information sheet has been provided to the patient in their After Visit Summary. The patient was also advised that genetic testing may not be covered by all insurances. The patients states that they understand this information. The patient states that she has not had the genetic screening for Horizon 14 done in the past during a previous . The patient has agreed that she does want genetic testing for Horizon 14 and Panorama The following Labs have been ordered: Obstetric Panel, HIV with verbal Consent, Hepatitis C, Urine Culture, UDS, Panorama with gender, and Horizon 14 panel She is aware that her insurance may or may not cover Panorama and/or Horizon 14 test and discussed nieto only escobedo for test(s) - info given today in her after visit summary . She would like to proceed with testing. For Horizon Carrier Screening, if patient has [employer], [employer] or [employer] insurances: Not Applicable Electronically signed by: Tosha Rivera RN 11/10/24 9:58 AM EDT Last Filed Vital Signs Vital Sign Reading Time Taken Comments Blood Pressure 118/70 10/04/2024 11:26 AM EDT Pulse 86 10/04/2024 11:26 AM EDT Temperature - - Respiratory Rate - - Oxygen Saturation - - Inhaled Oxygen Concentration - - Weight 60.8 kg (134 lb) 11/10/2024 10:00 AM EDT Height 160 cm (5' 3 ) 11/10/2024 10:00 AM EDT Body Mass Index 23.74 11/10/2024 10:00 AM EDT Plan of Treatment Upcoming Encounters Date Type Department Care Team (Late st Contact Info) Description 01/12/2025 3:00 PM EDT Initial Obstetrics and Gynecology - [address] [phone] Micheline Alanis, CN [address] [place] [address] 01/25/2025 9:00 AM EDT Ancillary Procedure Maternal Medicine - [address] [phone] Health Maintenance Due Date Last Done Comments DTaP,Tdap,and Td Vaccines (9 - Td or Tdap) 12/24/2020 12/24/2010, 12/13/2008, 04/28/2001, Additional history exists Social Influencers of Health Screening 04/12/2022 COVID-19 Vaccine ( season) 2024 08/20/2021, 11/09/2020, 10/12/2020 Depression Screening 05/04/2024 Influenza Vaccine (#1) 2025 01/31/2021, 2019 Cholesterol Screening (Lipid Panel) 06/19/2025 06/19/2020 Cervical Cancer Screening: HPV 09/09/2028 09/10/2023 HIB Vaccines Completed 03/12/1992, 02/21/1991 IPV Vaccines Completed 11/03/1994, 01/1992, 1990, Additional history exists Hepatitis B Vaccines Completed 05/05/2002, 05/31/2001, 04/28/2001 Meningococcal ACWY Vaccine Completed 12/13/2008 HPV Vaccines Completed 06/01/2020, 0 05/2013, 05/13/2013, Additional history exists HIV Screening Completed 11/10/2024, 07/2023, 09/04/2023 Hepatitis C Screening Completed 11/10/2024, 024 Hepatitis A Vaccines Aged Out No long er eligible based on patient's age to complete this topic Meningococcal B Vaccine Aged Out No l onger eligible based on patient's age to complete this topic Pneumococcal Vaccine: Pediatrics (0 to 5 Years) and At-Risk Patients (6 to 49 Years) Aged Out No longer eligible based on patient's age to complete this topic RSV Immunization Patients Under 20 months Aged Out No longer eligible based on patient's age to complete this topic Procedures Procedure Name Priority Date/Time Associated Diagnosis Comments US OB LESS 14 WKS SINGLE OR FIRST GESTATION Routine 11/25/2024 8:35 AM EDT Advanced maternal age in multigravida, first trimester Encounter for screening for malformations Encounter for nuchal translucency testing US OB LESS 14 WKS NUCHAL MEASUREMENT Routine 11/25/2024 8:35 AM EDT Multigravida of advanced maternal age in first trimester Encounter for screening for malformations Encounter for nuchal translucency testing HORIZON 14, ZENAIDA Routine 11/19/2024 4: 28 PM EDT PANORAMA TEST Routine 12:55 PM EDT CBC WITH AUTO DIFFERENTIAL Routine 11/10/2024 11:01 AM EDT Encounter for supervision of normal first in first trimester TYPE AND SCREEN Routine 11/10/2024 11:01 AM EDT Encounter for supervision of normal first in first trimester CBC AND DIFFERENTIAL Routine 11/10/2024 11:01 AM EDT Encounter for supervision of normal first in first trimester DRUG ABUSE SCREEN EXPANDED WITH REFLEX CONFIRMATION, URINE Routine 11/10/2024 11:01 AM EDT Encounter for supervision of normal first in first trimester HEPATITIS C ANTIBODY Routine 11/10/2024 11:01 AM EDT Encounter for supervision of normal first in first trimester HIV 1, 2 ANTIBODY, P24 ANTIGEN WITH REFLEX TO DIFFERENTIATION Routine 11/10/2024 11:01 AM EDT Encounter for supervision of normal first in first trimester RUBELLA ANTIBODY IGG Routine 11/10/2024 11:01 AM EDT Encounter for supervision of normal first in first trimester TREPONEMA PALLIDUM ANTIBODY WITH REFLEX TO RPR AND PARTICLE AGGLUTINATION Routine 11/10/2024 11:01 AM EDT Encounter for supervision of normal first in first trimester VARICELLA ZOSTER ANTIBODY IGG Routine 11/10/2024 11:01 AM EDT Encounter for supervision of normal first in first trimester HEPATITIS B SURFACE ANTIGEN WITH CONFIRMATION Routine 11/10/2024 11:01 AM EDT Encounter for supervision of normal first in first trimester VENIPUNCTURE CHARGE Routine 11/10/2024 1 1:01 AM EDT care, subsequent in first trimester Multigravida of advanced maternal age in first trimester Supervision of elderly multigravida in first trimester Encounter of female for testing for genetic disease carrier status for procreative management CULTURE URINE Routine 11/10/2024 11:01 AM EDT Encounter for supervision of normal first in first trimester TRICHOMONAS VAGINALIS ANTIGEN Routine 10/04/2024 12:30 PM EDT Vaginal odor WET PREP, GENITAL Routine 10/04/2024 12: 30 PM EDT Vaginal odor CHLAMYDIA TRACHOMATIS AND NEISSERIA GONORRHOEAE PCR Routine 10/04/2024 12:30 PM EDT Screen for STD (sexually transmitted disease) POC , URINE DIAGNOSTIC Routine 10/04/2024 11:37 AM EDT test positive HM HPV Routine 09/10/2023 LIPID PANEL Routine 06/19/2020 from Last 3 Months or Most Recently Relevant to Health Maintenance Results * US OB Less 14 Wks Nuchal Measurement (11/25/2024 8:35 AM EDT) Anatomical Region Laterality Modality Body Ultrasound 11/25/2024 8:04 AM EDT Narrative 11/25/2024 9:16 AM EDT OBSTETRICS REPORT (Signed Final 11/25/2024 09:16 am) PATIENT INFO: ID #: [id number] : [birth year] (34 yrs)(F) Name: IMANI KNIGHT Visit Date: 11/25/2024 08:04 am PERFORMED BY: Attending: Becky German MD Performed By: Trey Terrell RDAK Referred By: Alla Reed CNM Ref. Address: [address] [place] [id number] Location: [facility]) SERVICE(S) PROVIDED: US Nuchal Translucency 04705 US < 14 weeks Abdominal Ultrasound 50125 INDICATIONS: Advanced Maternal Age in multigravida, first O09.521 trimester Encounter for screening for Z36.3 malformations Encounter for screening for nuchal Z36.82 translucency Supervision of elderly multigravida, first O09.521 trimester 13 weeks gestation of Z3A.13 TECHNIQUE/SCAN QUALITY: Technique: Transabdominal Scan Satisfactory Quality: OB HISTORY: : 3 Term: 2 Livin VITAL SIGNS: Weight (lb) Height BMI 134 5'3 23.73 EVALUATION: Number Of Fetuses: 1 Heart Rate(bpm): 161 Cardiac Activity: Observed Presentation: Variable Placenta Location: Anterior Appearance: Grade 0 Cord Insertion: Visualized BIOMETRY: GESTATIONAL AGE: LMP: 13w 0d Date: 08/26/24 FAUZIA: 06/02/25 Best: 13w 0d Det. By: LMP (08/26/24) FAUZIA: 06/02/25 1ST TRIMESTER GENETIC SONOGRAM SCREENING: CRL: 72.48 mm G.Age: 13w 3d FAUZIA: 05/30/25 Nuc Trans: 1.67 mm STANDARD ANATOMY: Cranium: Normal appearance Choroid Plexus: Normal appearance Stomach: Normal appearance Abdominal Wall: Normal appearance Cord Vessels: Normal 3-Vessel Cord Bladder: Normal appearance Upper Extremities: Seen Lower Extremities: Seen CERVIX UTERUS ADNEXA: Uterus Size(cm) 9.77 x 9.42 x 9.1 Uterus Vol(ml): 438.52 Anteverted, anteflexed. Myometrium homogeneous, no lesions identified. Right Ovary Size(cm) 2.4 x 1.36 x 1.09 Vol(ml): 1.86 Normal in size and appearance. It is found between the uterus and the pelvic sidewall. Left Ovary Size(cm) 3.08 x 3.04 x 1.68 Vol(ml): 8.24 Normal in size and appearance. It is found between the uterus and the pelvic sidewall. COMMENTS: Ms. Knight is being seen for first trimester screening for aneuploidy. - Her medical history is not contributory. - Her obstetrical history is significant for two vaginal term deliveries. - She had cell free DNA screening. Results were low-risk for all conditions assessed. - Ultrasound findings: The nuchal translucency measurement is < 95th% for the gestational age. - biometry is consistent with dates. Assessment of the anatomy is appropriate for the gestational age. There are no ultrasound findings to suggest aneuploidy. - Plan: 1. A detailed ultrasound and cervical length screening for risk of have been scheduled. - 2. The patient should be offered second trimester MSAFP only, to assess for risk of an open neural tube defect. Becky German MD Electronically Signed Final Report 11/25/2024 09:16 am Procedure Becky Diaz MD - 11/25/2024 OBSTETRICS REPORT (Signed Final 11/25/2024 09:16 am) PATIENT INFO: ID #: [id number] : [birth year] (34 yrs)(F) Name: IMANI KNIGHT Visit Date: 11/25/2024 08:04 am PERFORMED BY: Attending: Becky German MD Performed By: Trey Terrell RDMS Referred By: Alla LOPEZ Ref. Address: [address] [place] [id number] Location: [facility]) SERVICE(S) PROVIDED: US Nuchal Translucency 35567 US < 14 weeks Abdominal Ultrasound 15107 INDICATIONS: Advanced Maternal Age in multigravida, first O09.521 trimester Encounter for screening for Z36.3 malformations Encounter for screening for nuchal Z36.82 translucency Supervision of elderly multigravida, first O09.521 trimester 13 weeks gestation of Z3A.13 TECHNIQUE/SCAN QUALITY: Technique: Transabdominal Scan Satisfactory Quality: OB HISTORY: : 3 Term: 2 Livin VITAL SIGNS: Weight (lb) Height BMI 134 5'3 23.73 EVALUATION: Number Of Fetuses: 1 Heart Rate(bpm): 161 Cardiac Activity: Observed Presentation: Variable Placenta Location: Anterior Appearance: Grade 0 Cord Insertion: Visualized BIOMETRY: GESTATIONAL AGE: LMP: 13w 0d Date: 08/26/24 FAUZIA: 06/02/25 Best: 13w 0d Det. By: LMP (08/26/24) FAUZIA: 06/02/25 1ST TRIMESTER GENETIC SONOGRAM SCREENING: CRL: 72.48 mm G.Age: 13w 3d FAUZIA: 05/30/25 Nuc Trans: 1.67 mm STANDARD ANATOMY: Cranium: Normal appearance Choroid Plexus: Normal appearance Stomach: Normal appearance Abdominal Wall: Normal appearance Cord Vessels: Normal 3-Vessel Cord Bladder: Normal appearance Upper Extremities: Seen Lower Extremities: Seen CERVIX UTERUS ADNEXA: Uterus Size(cm) 9.77 x 9.42 x 9.1 Uterus Vol(ml): 438.52 Anteverted, anteflexed. Myometrium homogeneous, no lesions identified. Right Ovary Size(cm) 2.4 x 1.36 x 1.09 Vol(ml): 1.86 Normal in size and appearance. It is found between the uterus and the pelvic sidewall. Left Ovary Size(cm) 3.08 x 3.04 x 1.68 Vol(ml): 8.24 Normal in size and appearance. It is found between the uterus and the pelvic sidewall. COMMENTS: Ms. Knight is being seen for first trimester screening for aneuploidy. - Her medical history is not contributory. - Her obstetrical history is significant for two vaginal term deliveries. - She had cell free DNA screening. Results were low-risk for all conditions assessed. - Ultrasound findings: The nuchal translucency measurement is < 95th% for the gestational age. - biometry is consistent with dates. Assessment of the anatomy is appropriate for the gestational age. There are no ultrasound findings to suggest aneuploidy. - Plan: 1. A detailed ultrasound and cervical length screening for risk of have been scheduled. - 2. The patient should be offered second trimester MSAFP only, to assess for risk of an open neural tube defect. Becky German MD Electronically Signed Final Report 11/25/2024 09:16 am us Alla Reed CNM IMG OB US PROCEDURES Final Res ult * US OB Less 14 Wks Single or First Gestation (11/25/2024 8:35 AM EDT) Anatomical Region Laterality Modality Body Ultrasound 11/25/2024 8:04 AM EDT Narrative 11/25/2024 9:16 AM EDT OBSTETRICS REPORT (Signed Final 11/25/2024 09:16 am) PATIENT INFO: ID #: [id number] : [birth year] (34 yrs)(F) Name: IMANI KNIGHT Visit Date: 11/25/2024 08:04 am PERFORMED BY: Attending: Becky German MD Performed By: Trey Terrell RDMS Referred By: Alla Reed CNM Ref. Address: [address] [place] [id number] Location: [facility]) SERVICE(S) PROVIDED: US Nuchal Translucency 35989 US < 14 weeks Abdominal Ultrasound 46933 INDICATIONS: Advanced Maternal Age in multigravida, first O09.521 trimester Encounter for screening for Z36.3 malformations Encounter for screening for nuchal Z36.82 translucency Supervision of elderly multigravida, first O09.521 trimester 13 weeks gestation of Z3A.13 TECHNIQUE/SCAN QUALITY: Technique: Transabdominal Scan Satisfactory Quality: OB HISTORY: : 3 Term: 2 Livin VITAL SIGNS: Weight (lb) Height BMI 134 5'3 23.73 EVALUATION: Number Of Fetuses: 1 Heart Rate(bpm): 161 Cardiac Activity: Observed Presentation: Variable Placenta Location: Anterior Appearance: Grade 0 Cord Insertion: Visualized BIOMETRY: GESTATIONAL AGE: LMP: 13w 0d Date: 08/26/24 FAUZIA: 06/02/25 Best: 13w 0d Det. By: LMP (08/26/24) FAUZIA: 06/02/25 1ST TRIMESTER GENETIC SONOGRAM SCREENING: CRL: 72.48 mm G.Age: 13w 3d FAUZIA: 05/30/25 Nuc Trans: 1.67 mm STANDARD ANATOMY: Cranium: Normal appearance Choroid Plexus: Normal appearance Stomach: Normal appearance Abdominal Wall: Normal appearance Cord Vessels: Normal 3-Vessel Cord Bladder: Normal appearance Upper Extremities: Seen Lower Extremities: Seen CERVIX UTERUS ADNEXA: Uterus Size(cm) 9.77 x 9.42 x 9.1 Uterus Vol(ml): 438.52 Anteverted, anteflexed. Myometrium homogeneous, no lesions identified. Right Ovary Size(cm) 2.4 x 1.36 x 1.09 Vol(ml): 1.86 Normal in size and appearance. It is found between the uterus and the pelvic sidewall. Left Ovary Size(cm) 3.08 x 3.04 x 1.68 Vol(ml): 8.24 Normal in size and appearance. It is found between the uterus and the pelvic sidewall. COMMENTS: Ms. Knight is being seen for first trimester screening for aneuploidy. - Her medical history is not contributory. - Her obstetrical history is significant for two vaginal term deliveries. - She had cell free DNA screening. Results were low-risk for all conditions assessed. - Ultrasound findings: The nuchal translucency measurement is < 95th% for the gestational age. - biometry is consistent with dates. Assessment of the anatomy is appropriate for the gestational age. There are no ultrasound findings to suggest aneuploidy. - Plan: 1. A detailed ultrasound and cervical length screening for risk of have been scheduled. - 2. The patient should be offered second trimester MSAFP only, to assess for risk of an open neural tube defect. Becky German MD Electronically Signed Final Report 11/25/2024 09:16 am Procedure Becky Diaz MD - 11/25/2024 OBSTETRICS REPORT (Signed Final 11/25/2024 09:16 am) PATIENT INFO: ID #: [id number] : 90 (34 yrs)(F) Name: IMANI KNIGHT Visit Date: 11/25/2024 08:04 am PERFORMED BY: Attending: Becky German MD Performed By: Trey Terrell RDMS Referred By: Alla LOPEZ Ref. Address: [address] [place] [address] Location: [facility]) SERVICE(S) PROVIDED: US Nuchal Translucency 12814 US < 14 weeks Abdominal Ultrasound 35361 INDICATIONS: Advanced Maternal Age in multigravida, first O09.521 trimester Encounter for screening for Z36.3 malformations Encounter for screening for nuchal Z36.82 translucency Supervision of elderly multigravida, first O09.521 trimester 13 weeks gestation of Z3A.13 TECHNIQUE/SCAN QUALITY: Technique: Transabdominal Scan Satisfactory Quality: OB HISTORY: : 3 Term: 2 Livin VITAL SIGNS: Weight (lb) Height BMI 134 5'3 23.73 EVALUATION: Number Of Fetuses: 1 Heart Rate(bpm): 161 Cardiac Activity: Observed Presentation: Variable Placenta Location: Anterior Appearance: Grade 0 Cord Insertion: Visualized BIOMETRY: GESTATIONAL AGE: LMP: 13w 0d Date: 08/26/24 FAUZIA: 06/02/25 Best: 13w 0d Det. By: LMP (08/26/24) FAUZIA: 06/02/25 1ST TRIMESTER GENETIC SONOGRAM SCREENING: CRL: 72.48 mm G.Age: 13w 3d FAUZIA: 05/30/25 Nuc Trans: 1.67 mm STANDARD ANATOMY: Cranium: Normal appearance Choroid Plexus: Normal appearance Stomach: Normal appearance Abdominal Wall: Normal appearance Cord Vessels: Normal 3-Vessel Cord Bladder: Normal appearance Upper Extremities: Seen Lower Extremities: Seen CERVIX UTERUS ADNEXA: Uterus Size(cm) 9.77 x 9.42 x 9.1 Uterus Vol(ml): 438.52 Anteverted, anteflexed. Myometrium homogeneous, no lesions identified. Right Ovary Size(cm) 2.4 x 1.36 x 1.09 Vol(ml): 1.86 Normal in size and appearance. It is found between the uterus and the pelvic sidewall. Left Ovary Size(cm) 3.08 x 3.04 x 1.68 Vol(ml): 8.24 Normal in size and appearance. It is found between the uterus and the pelvic sidewall. COMMENTS: Ms. Knight is being seen for first trimester screening for aneuploidy. - Her medical history is not contributory. - Her obstetrical history is significant for two vaginal term deliveries. - She had cell free DNA screening. Results were low-risk for all conditions assessed. - Ultrasound findings: The nuchal translucency measurement is < 95th% for the gestational age. - biometry is consistent with dates. Assessment of the anatomy is appropriate for the gestational age. There are no ultrasound findings to suggest aneuploidy. - Plan: 1. A detailed ultrasound and cervical length screening for risk of have been scheduled. - 2. The patient should be offered second trimester MSAFP only, to assess for risk of an open neural tube defect. Becky German MD Electronically Signed Final Report 11/25/2024 09:16 am Alla Ranjana Conneres [facility] IMG OB US PROCEDURES Final Res ult * Horizon 14 (11/19/2024 4:28 PM EDT) Blood Venous blood specimen / Unknown Alla Ranjana Reed [facility] LAB BLOOD ORDERABLES Final Res ult * Panorama test (11/16/2024 12:55 PM EDT) Blood Venous blood specimen / Unknown Alla Reed [facility] LAB BLOOD ORDERABLES Final Res ult * Hepatitis C antibody (11/10/2024 11:01 AM EDT) Hepatitis C Antibody Negative Negative LAB CHEMISTRY METHOD 11/10/2024 3:01 PM EDT [facility] Blood Venous blood specimen / Unknown Venipuncture / Unknown 11/10/2024 11:01 AM EDT 11/10/2024 11:01 AM EDT Alla Reed [facility] LAB BLOOD ORDERABLES Final Res ult [facility] [address] [place] [address], [place] [phone] * HIV 1,2 antibody, p24 antigen with reflex to differentiation (11/10/2024 11:01 AM EDT) Pathologist [facility] HIV Combo AB/AG Negative Negative LAB CHEMISTRY METHOD 11/10/2024 3:01 PM EDT [facility] Blood Venous blood specimen / Unknown Venipuncture / Unknown 11/10/2024 11:01 AM EDT 11/10/2024 11:01 AM EDT [facility] - 11/10/2024 3:01 PM EDT This assay is a 4th generation assay allowing for earlier detection of HIV infection by detecting the presence of the HIV-1 p24 antigen as well as the traditional antibodies to HIV type 1 (including group O) and type 2. Use of a 4th generation assay is the current CDC recommendation for HIV screening. Alla Reed [facility] LAB BLOOD ORDERABLES Final Res ult Performing Organization Address [facility] Co de Phone Number [facility] [address] [place] [address], [place] [phone] * Hepatitis B surface antigen with reflex to confirmation (11/10/2024 11:01 AM EDT) [facility] Hepatitis B Surface Ag Negative Negative LAB CHEMISTRY METHOD 11/10/2024 2:32 PM EDT [facility] Blood Venous blood specimen / Unknown Venipuncture / Unknown 11/10/2024 11:01 AM EDT 11/10/2024 11:01 AM EDT Narrative [facility] - 11/10/2024 2:32 PM EDT Over the counter supplements containing high doses of biotin may interfere with this assay. If interference is suspected, patients shoud be retested after refraining from biotin supplements for 72 hours. us Alla Chilel Reed [facility] LAB BLOOD ORDERABLES Final Res ult Performing Organization Address [facility]/ZIP Co de Phone Number [facility] [address] [place] [address], [place] [phone] * Treponema pallidum antibody with reflex to RPR and particle agglutination (11/10/2024 11:01 AM EDT) T. Pallidum Antibodies Negative Negative LAB CHEMISTRY METHOD 11/10/2024 3:36 PM EDT [facility] Blood Venous blood specimen / Unknown Venipuncture / Unknown 11/10/2024 11:01 AM EDT 11/10/2024 11:01 AM EDT [facility] Final Res ult [facility] [address] [place] [address], [place] [phone] * Venipuncture charge (11/10/2024 11:01 AM EDT) Pathologist [facility] Extra Tube Hold for add-ons. 11/10/2024 1:01 PM EDT [facility] Comment:Auto resulted. Blood Venous blood specimen / Unknown Venipuncture / Unknown 11/10/2024 11:01 AM EDT 11/10/2024 11:01 AM EDT [facility] Ranjana [facility] LAB BLOOD ORDERABLES Final Res ult [facility] ([facility], * Drug abuse screen expanded with reflex confirmation, urine (11/10/2024 11:01 AM EDT) Pathologist [facility] Amphetamine Screen, Ur Negative Negative LAB CHEMISTRY METHOD 11/10/2024 2:28 PM EDT [facility] Comment:Certain OTC medicati ons containing ephedrine, phenylephrine, pseudoephedrine and phenylpropanolamine can cause false positive results. Barbiturate Screen, Ur Negative Negative LAB CHEMISTRY METHOD 11/10/2024 2:28 PM EDT [facility] Benzodiazepine Screen, Ur Negative Negative LAB CHEMISTRY METHOD 11/10/2024 2:28 PM EDT [facility] Cocaine Screen, Ur Negative Negative LAB CHEMISTRY METHOD 11/10/2024 2:28 PM EDT [facility] Opiate Screen, Ur Negative Negative LAB CHEMISTRY METHOD 11/10/2024 2:28 PM EDT [facility] Cannabinoid (THC) Screen, Ur Negative Negative LAB CHEMISTRY METHOD 11/10/2024 2:28 PM EDT [facility] Comment:Specimens from patie nts taking pantoprazole sodium (Protonix) have been shown to produce false positive results. Fentanyl, Ur Negative Negative LAB CHEMISTRY METHOD 11/10/2024 2:28 PM EDT [facility] Oxycodone Screen, Ur Negative Negative LAB CHEMISTRY METHOD 11/10/2024 2:28 PM T [facility] Urine Urine specimen obtained by clean catch procedure / Unknown Non-blood Collection / Unknown 11/10/2024 11:01 AM EDT 11/10/2024 11:01 AM EDT Narrative [facility] - 11/10/2024 2:28 PM EDT Assay cutoffs: Amphetamines 1000 ng/mL Barbiturates 200 ng/mL Benzodiazepines 200 ng/mL Cocaine 300 ng/mL Fentanyl 1 ng/mL Opiates 300 ng/mL Oxycodone 100 ng/mL THC 50 ng/mL Semi-quantitative assay for screening purposes only. Unconfirmed screening result should not be used for non-medical purposes. *POSITIVE RESULTS ARE AUTOMATICALLY SENT FOR ALTERNATE METHOD CONFIRMATION* Alla Reed CNM LAB URINE ORDERABLES Final Res ult [facility] [address] [place] [address], * (ABNORMAL) CBC auto differential (11/10/2024 11:01 AM EDT) WBC 12.1(H) 4.8 - 10.8 K/[facility] LAB HEMETOLOGY METHOD 11/10/2024 12:27 PM [facility] RBC 4.30 3.80 - 4.80 M/mcL LAB HEMETOLOGY METHOD 11/10/2024 12:27 PM [facility] Hemoglobin 13.1 11.5 - 16.0 g/dL LAB HEMETOLOGY METHOD 11/10/2024 12:27 PM [facility] Hematocrit 38.9 35.0 - 47.0 % LAB HEMETOLOGY METHOD 11/10/2024 12:27 PM [facility] MCV 91.3 79.0 - 98.0 FL LAB HEMETOLOGY METHOD 11/10/2024 12:27 PM [facility] MCH 30.8 27.0 - 32.0 pcg LAB HEMETOLOGY METHOD 11/10/2024 12:27 PM [facility] MCHC 33.7 32.0 - 37.0 g/dL LAB HEMETOLOGY METHOD 11/10/2024 12:27 PM [facility] RDW 12.7 11.0 - 15.0 % LAB HEMETOLOGY METHOD 11/10/2024 12:27 PM [facility] Platelets 308 130 - 400 K/mcL LAB HEMETOLOGY METHOD 11/10/2024 12:27 PM [facility] MPV 11.6(H) 7.0 - 11.0 FL LAB HEMETOLOGY METHOD 11/10/2024 12:27 PM [facility] NRBC 0.0 <1.0 % LAB HEMETOLOGY METHOD 11/10/2024 12:27 PM [facility] NRBC Absolute 0.00 <0.10 K/mcL LAB HEMETOLOGY METHOD 11/10/2024 12:27 PM [facility] Neutrophils Relative 80.2 % LAB HEMETOLOGY METHOD 11/10/2024 12:27 PM [facility] Lymphocytes Relative 10.3 % LAB HEMETOLOGY METHOD 11/10/2024 12:27 PM [facility] Monocytes Relative 7.3 % LAB HEMETOLOGY METHOD 11/10/2024 12:27 PM [facility] Eosinophils Relative 1.1 % LAB HEMETOLOGY METHOD 11/10/2024 12:27 PM [facility] Basophils Relative 0.3 % LAB HEMETOLOGY METHOD 11/10/2024 12:27 PM [facility] Immature Granulocytes Relative 0.8 % LAB HEMETOLOGY METHOD 11/10/2024 12:27 PM [facility] Neutrophils Absolute 9.73(H) 1.50 - 7.00 K/mcL LAB HEMETOLOGY METHOD 11/10/2024 12:27 PM [facility] Lymphocytes Absolute 1.25 1.00 - 5.00 K/mcL LAB HEMETOLOGY METHOD 11/10/2024 12:27 PM [facility] Monocytes Absolute 0.89 0.20 - 1.00 K/mcL LAB HEMETOLOGY METHOD 11/10/2024 12:27 PM [facility] Eosinophils Absolute 0.13 0.00 - 0.50 K/mcL LAB HEMETOLOGY METHOD 11/10/2024 12:27 PM [facility] Basophils Absolute 0.04 0.00 - 0.20 K/mcL LAB HEMETOLOGY METHOD 11/10/2024 12:27 PM [facility] Immature Granulocytes Absolute 0.10(H) 0.00 - 0.03 K/mcL LAB HEMETOLOGY METHOD 11/10/2024 12:27 PM [facility] Blood Venous blood specimen / Unknown Venipuncture / Unknown 11/10/2024 11:01 AM EDT 11/10/2024 11:01 AM EDT us Alla LOPEZ LAB BLOOD ORDERABLES Final Res ult Performing Organization Address [facility]/State/ZIP Co de Phone Number [facility] [address] [place] [address], [place] [phone] * Rubella antibody IgG (11/10/2024 11:01 AM EDT) Rubella IgG Quant 128.8 >=10.0 I Unit/mL LAB CHEMISTRY METHOD 11/10/2024 2:32 PM EDT [facility] Rubella IgG Antibody Interp Positive Positive LAB CHEMISTRY METHOD 11/10/2024 2:32 PM EDT [facility] Blood Venous blood specimen / Unknown Venipuncture / Unknown 11/10/2024 11:01 AM EDT 11/10/2024 11:01 AM EDT us Alla Reed [facility] LAB BLOOD ORDERABLES Final Res ult Performing Organization Address [facility] Co de Phone Number [facility] [address] [place] [address], [place] [phone] * Type and screen (11/10/2024 11:01 AM EDT) ABO Group O 11/10/2024 1:07 PM EDT [facility] Rh Type Positive 11/10/2024 1:07 PM EDT [facility] Antibody Screen Negative 11/10/2024 1:07 PM EDT [facility] Blood Venous blood specimen / Unknown Venipuncture / Unknown 11/10/2024 11:01 AM EDT 11/10/2024 11:01 AM EDT us Alla Reed [facility] LAB BLOOD BANK TEST ORDERABLES Final Result [facility] [address] [place] [address], * Culture urine (11/10/2024 11:01 AM EDT) [facility] Culture, Urine 10,000-49,000 CFU/mL Mixed urogenital lizzy, no uropathogens present. Suggest repeat specimen if clinically indicated. 11/12/2024 1:15 PM EDT [facility] Urine Urine specimen obtained by clean catch procedure / Unknown Non-blood Collection / Unknown 11/10/2024 11:01 AM EDT 11/10/2024 11:01 AM EDT [facility] - 11/12/2024 1:15 PM EDT Beta Strep Group B noted. The presence of a low colony count of Beta Strep Group B may have clinical significance in women. us Alla Reed CNM LAB MICROBIOLOGY - GENERAL ORD ERABLES Final Result Performing Organization Address [facility] de Phone Number [facility] [address] [place] [address], * Varicella zoster antibody IgG (11/10/2024 11:01 AM EDT) [facility] Varicella IgG Positive Positive LAB CHEMISTRY METHOD 11/10/2024 2:57 PM EDT [facility] Varicella Zoster IgG 12.00 >=1.00 S/CO LAB CHEMISTRY METHOD 11/10/2024 2:57 PM EDT [facility] Blood Venous blood specimen / Unknown Venipuncture / Unknown 11/10/2024 11:01 AM EDT 11/10/2024 11:01 AM EDT [facility] - 11/10/2024 2:57 PM EDT Interpretation >= 1.00 S/CO is considered to be consistent with Immunity us Alla Reed CNM LAB BLOOD ORDERABLES Final Res ult [facility] [address] [place] [address], * Trichomonas vaginalis antigen (10/04/2024 12:30 PM EDT) Trichomonas vaginalis Negative Negative 10/04/2024 8:09 PM EDT [facility] Swab Vaginal structure / Unknown Non-blood Collection / Unknown 10/04/2024 12:30 PM EDT 10/04/2024 12:31 PM EDT Alla LOPEZ LAB MICROBIOLOGY - GENERAL ORD ERABLES Final Result Performing Organization Address [facility]/ZIP Co de Phone Number [facility] [address] [place] [address], [place] [phone] * Chlamydia trachomatis and Neisseria gonorrhoeae molecular study (10/04/2024 12:30 PM EDT) Pathologist [facility] Neisseria gonorrhoeae PCR Negative Negative LAB MOLECULAR DIAGNOSTICS METHOD 10/05/2024 8:39 AM EDT [facility] Chlamydia trachomatis PCR Negative Negative LAB MOLECULAR DIAGNOSTICS METHOD 10/05/2024 8:39 AM EDT [facility] Swab Cervix uteri structure / Unknown Non-blood Collection / Unknown 10/04/2024 12:30 PM EDT 10/04/2024 12:31 PM EDT Alla Reed [facility] LAB MICROBIOLOGY - GENERAL ORD ERABLES Final Result Performing Organization Address City/[facility]/ZIP Co de Phone Number [facility] [address] [place] [address], [place] [phone] * (ABNORMAL) Wet prep, genital (10/04/2024 12:30 PM EDT) Clue Cells, Wet Prep Positive(A) Negative 10/04/2024 8:08 PM EDT [facility] Yeast, Wet Prep Negative Negative 10/04/2024 8:08 PM EDT [facility] Trichomonas, Wet Prep Indeterminate Negative 10/04/2024 8:08 PM EDT [facility] Comment:Refer to Trichomonas antigen. Swab Vaginal structure / Unknown Non-blood Collection / Unknown 10/04/2024 12:30 PM EDT 10/04/2024 12:31 PM EDT Alla Reed CNM LAB MICROBIOLOGY - GENERAL ORD ERABLES Final Result [facility] [address] [place] [address], [place] [phone] * (ABNORMAL) POC , urine manually resulted (10/04/2024 11:37 AM EDT) [facility] HCG, Ur POC Positive(A ) Negative POC hCG Int QC Pass? Yes Yes Urine Urine specimen obtained by clean catch procedure / Unknown 10/04/2024 11:37 AM EDT Alla Reed CNM POINT OF CARE TEST ENTER/EDIT ORDERABLES Edited Result - Final * Cervical Cancer Screening: HPV (09/10/2023) [facility] Cervical Cancer Screening: HPV negative, abstracted Historical Provider HEALTH MAINTENANCE Final Result * (ABNORMAL) Lipid panel (06/19/2020) [facility] LDL/HDL Ratio 4 0 - 4 Triglycerides 227(A) 0 - 150 mg/dL Cholesterol 202(A) 0 - 200 mg/dL HDL 52 >=40 mg/dL LDL Cholesterol 105(A) 0 - 100 mg/dL Blood Venous blood specimen / Unknown Historical Provider LAB BLOOD ORDERABLES Priyanka l Result from Last 3 Months or Most Recently Relevant to Health Maintenance Insurance [facility] Care Teams [facility] Relationship Specialty Start Date End Date Wilder Moya MD [address] [place] [address] PCP - General Internal Medicine 09/27/21
== END 2024-12-21 15:52 | disposition home or self-care (01) ==
PROVIDERS: Registered Nurse Emergency; Emergency Provider Emergency Medicine
DX: O23.42 Unspecified infection of urinary tract in pregnancy, second trimester (principal); N39.0 Urinary tract infection, site not specified; Z3A.16 16 weeks gestation of pregnancy; Z79.899 Other long term (current) drug therapy
CPT/HCPCS: 36415; 76815; 80053; 81001; 85025; 87086; 99284

== ENCOUNTER → 2024-12-21 13:07 | Outpatient (BNV) | payer OTHER, SELFPAY | PROVIDERS: Emergency Provider Emergency Medicine; Visit Provider Radiology Diagnostic Radiology | DX: O26.899 Other specified pregnancy related conditions, unspecified trimester (principal) | CPT/HCPCS: 76815 ==